=== PATIENT | female | born 1995 | race Caucasian/White ===

== ENCOUNTER → 2018-04-24 14:35 | Outpatient (CLI) | payer OTHER, SELFPAY ==
[2018-04-30 12:06] LABS: HPV Reflexed? NOT INDICATED
--- OUTSIDE RECORDS SUMMARY | 2018-06-10 11:51 | XMS RPT_ITS ---
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 of containers..01 ThinPrep Vial TYPE CODE TESTS RESULT OUT OF RANGE REFERENCE UNITS LAB L7400.0800 . Normal DIAGN Comment Result Comment: NEGATIVE FOR INTRAEPITHELIAL LESION AND MALIGNANCY. THIS SPECIMEN WAS RESCREENED PART OF OUR HEEL BUILDER MACHINE PROGRAM. LAB L7400.0900 . Normal ADEQ Comment Result Comment: Satisfactory for evaluation. Endocervical and/or squamous metaplastic cells (endocervical component) are present. LAB L7400.1400 . Normal PERFORM Comment Result Comment: Ela Sy, [place] LAB L7400.1500 . Normal QC Comment REV Result Comment: Angie Davidson, [place] (ASCP) LAB L7400.2575 . Normal TEST METHOD Comment Result Comment: This liquid based ThinPrep(R) pap test was screened with the use of an image guided system. LAB L7400.2600 . Normal . COMM LAB L7400.2700 . Normal PAPSMR Comment Result Comment: The Pap smear is a screening test designed to aid in the detection of premalignant and malignant conditions of the uterine cervix. It is not a diagnostic procedure and should not be used as the sole means of detecting cervical cancer. Both false-positive and false-negative reports do occur. LAB L7400.2800 . Normal HPV RFLX Comment Result Comment: The HPV DNA reflex criteria were not met with this specimen result therefore, no HPV testing was performed. Performed at: - [facility] [id number] [employer]: Kamini Coffman MD, Phone: [phone] Performed By: #### L7400.0350 #### [facility] (refer to report for specific site) refer to report for address and phone number ALLERGIES ALLERGIES DATE TYPE / CODE NAME / CODE REACTION SEVERITY SOURCE 11/21/2015 Drug No Known Unknown [facility] Allergy/4160 Allergies/F00 [facility] 13280(SNOMED [id number](RXNOR Repository CT) M) ENCOUNTERS ENCOUNTERS ADMIT/DISCHARGE ACCOUNT ADMITTING ENCOUNTER LOCATION SOURCE NUMBER CLASS 04/24/2018 [id number] Ambulatory Jennifer Jennifer 6 [facility] ing:WOBLAB Repository 07/29/2017 [id number] Ambulatory [place] 5 [facility] ing:MASS Repository PAYERS PAYERS ENCOUNTER GUARANTOR PAYER SUBSCRIBER SOURCE 04/24/2018 RUPERTO KRAUSE Primary Insurance:[facility] RAHUL Roe [place] [id number] [facility] ATANASOVDOB: [facility] [id number]: Repository [id number]: [phone] [phone] () Date:[id number], [place] [address]VP: CHECK WEBSITE 04/24/2018 Secondary NOT GIVENUNK [place] Insurance:SELF PAY [facility] Number: Effective Repository Date:2018-04-24 07/29/2017 RUPERTO KRAUSE Primary NOT GIVENUNK [place] [id number] Insurance:SELF PAY [place], [place] Number: Effective Repository [id number]: [phone]) Date:2017-07-17 [phone] ()
== END ==
PROVIDERS: Family Provider Family Medicine; PCP Family Medicine; Visit Provider Obstetrics & Gynecology
DX: Z12.4 Encounter for screening for malignant neoplasm of cervix (principal)
CPT/HCPCS: 88175; G0145

== ENCOUNTER → 2018-11-17 11:01 | Outpatient (CLI) | payer OTHER, SELFPAY ==
--- NOTE | 2018-11-17 11:03 | CT_ITS ---
STUDY: CT ABDOMEN AND PELVIS WITHOUT CONTRAST REASON FOR EXAM: Female, 23 years old. Pyelonephritis. Kidney stones. Recurrent UTIs. RADIATION DOSAGE (If Supplied By Facility): CTDIvol = ( 6.99 ) mGy, DLP = ( 349.33 ) mGycm TECHNIQUE: Transaxial images were obtained from the dome of the diaphragm to the symphysis pubis without oral contrast, and without intravenous contrast. Sagittal and coronal images were reconstructed. Individualized dose optimization techniques were used for this CT. COMPARISON: Comparison is made with prior study dated December 07, 2016. FINDINGS: The visualized lung bases are unremarkable. The visualized portions of the heart are within normal limits. Normal liver. Normal gallbladder and extrahepatic biliary system. Normal spleen. Normal pancreas. Normal bilateral adrenal glands. Normal right kidney. Punctate calculus seen in the lower pole calyx of the left kidney. Normal visualized stomach. Normal small intestine. Normal colon. The appendix is visualized and appears normal. Normal abdominal aorta. Normal inferior vena cava. Normal retroperitoneum. Normal urinary bladder. Normal abdominal wall. Normal osseous structures. CT/Abdomen/Pelvis without Cont IMPRESSION: Punctate calcification in the lower pole calyx of the left kidney. Electronically Signed: Alden García, at 12:59 EDT , Service support ,
--- NOTE | 2018-11-17 11:17 | RAD_ITS ---
CLINICAL HISTORY: Female, 23 years old. History of pyelonephritis. PROCEDURE: Retrograde cystogram. FLUOROSCOPY TIME (if supplied): (0:17) minutes/seconds 200 mL of contrast installed into the bladder in a retrograde fashion through the indwelling Peña catheter. The radiologist installed the contrast into the bladder. TECHNIQUE: (All elements of maximal sterile barrier technique followed, including US elements as applicable) Imaging was obtained during the filling neck and of the bladder. The urinary bladder is unremarkable. There is no evidence of vesicoureteral reflux. RAD/Voiding Urethrocystography IMPRESSION: Unremarkable examination. Electronically Signed: Alden García, at 12:50 EDT , Service support ,
--- NOTE | 2018-11-17 12:29 | NURSING ---
18 estonian mehta catheter inserted for cystogram with out complication at 1105, removed after testing, pt tolerated mehta insertion and removal with out discomfort
== END ==
PROVIDERS: Family Provider Family Medicine; PCP Family Medicine; Referring Provider Urology; Visit Provider Urology
DX: N20.0 Calculus of kidney (principal); N10 Acute pyelonephritis
CPT/HCPCS: 51600; 74176; 74455; Q9965

== ENCOUNTER → 2018-11-28 08:18 | Outpatient (CLI) | payer OTHER, SELFPAY ==
[2018-11-28 08:08] VITALS: BMI 22.1
--- NOTE | 2018-11-28 08:20 | RAD_ITS ---
STUDY: X-RAY - LEFT KNEE REASON FOR EXAM: Bilateral knee pain, no specific injury. TECHNIQUE: 4 view(s) of the knee. COMPARISON: None. FINDINGS: Normal visualized distal femur. Normal visualized proximal tibia and fibula. Normal proximal tibiofibular articulation. Normal medial femorotibial compartment. Normal lateral femorotibial compartment. Normal patellofemoral articulation. The soft tissue structures are unremarkable. RAD/Knee 4 or More Views IMPRESSION: Normal x-ray examination of the left knee. Electronically Signed: Wesley Ltuz MD at 11:38 EDT Tel , Service support ,
--- NOTE | 2018-11-28 08:20 | RAD_ITS ---
STUDY: X-RAY - RIGHT KNEE REASON FOR EXAM: Bilateral knee pain, no specific injury. TECHNIQUE: 4 view(s) of the knee. COMPARISON: None. FINDINGS: Normal visualized distal femur. Normal visualized proximal tibia and fibula. Normal proximal tibiofibular articulation. Normal medial femorotibial compartment. Normal lateral femorotibial compartment. Normal patellofemoral articulation. The soft tissue structures are unremarkable. RAD/Knee 4 or More Views IMPRESSION: Normal x-ray examination of the right knee. Electronically Signed: Wesley Lutz MD at 11:37 EDT Tel , Service support ,
== END ==
PROVIDERS: Family Provider Family Medicine; PCP Family Medicine; Referring Provider Orthopaedic Surgery; Visit Provider Orthopaedic Surgery
DX: M25.561 Pain in right knee (principal); M25.562 Pain in left knee
CPT/HCPCS: 73564

== ENCOUNTER → 2018-12-02 08:03 | Outpatient (CLI) | payer OTHER, SELFPAY ==
[2018-11-28 08:08] VITALS: BMI 22.1
--- NOTE | 2018-12-02 08:04 | MRI_ITS ---
STUDY: MRI LEFT KNEE WITH AND WITHOUT CONTRAST REASON FOR EXAM: Knee pain for 4 years, question bone mass. TECHNIQUE: Standardized fat and water weighted pulse sequences were obtained in all 3 orthogonal planes before and after intravenous administration of 12 mL of Dotarem. COMPARISON: Radiographs 11/28/2018. FINDINGS: There is minimal intrasubstance myxoid degeneration of the posterior horn of the medial meniscus without discrete medial meniscal tear. Normal hyaline cartilage of the medial femorotibial compartment. Normal medial femoral condyle and tibial plateau. Normal medial collateral ligamentous complex (MCL). Normal distal semimembranosus, gracilis and semitendinosus tendons. Normal lateral meniscus. Normal hyaline cartilage of the lateral femorotibial compartment. Normal lateral femoral condyle and tibial plateau. Normal proximal tibiofibular articulation. Normal lateral collateral (fibular) ligament. Normal popliteus tendon. Normal biceps femoris tendon. There is mild interstitial edema in the anterior cruciate ligament (T2 sagittal image 13; T2 coronal images 14, 15). Normal posterior cruciate ligament (PCL). Normal congruent patellofemoral articulation. Normal hyaline cartilage of the patellofemoral compartment. Normal medial and lateral patellar retinaculum. Normal quadriceps tendon. Normal patellar tendon. Normal Hoffa's fat pad. There is no joint effusion. There is a very small popliteal cyst (T2 sagittal images 7-9). There is mild cortical thickening of the posterior aspect of the distal femur at the origin of the medial gastrocnemius (proton density sagittal images 13-15) with very mild cystic change (T2 axial image 7), a sequelae of avulsive cortical irregularity. There is no abnormal contrast enhancement. MRI/Lower Ext Joint Only W/WO Cont IMPRESSION: Mild cortical thickening with very mild cystic change at the posterior aspect of distal femur at the origin of the medial gastrocnemius, a sequelae of avulsive cortical irregularity (cortical desmoid). Mild interstitial edema in the anterior cruciate ligament, possibly representing a low-grade sprain. Very small popliteal cyst. Electronically Signed: Wesley Lutz MD at 10:00 EDT Tel , Service support ,
== END ==
PROVIDERS: Family Provider Family Medicine; PCP Family Medicine; Referring Provider Orthopaedic Surgery; Visit Provider Orthopaedic Surgery
DX: M89.8X9 Other specified disorders of bone, unspecified site (principal)
CPT/HCPCS: 73723; A9575

== ENCOUNTER → 2019-04-28 14:11 | Outpatient (CLI) | payer OTHER, SELFPAY ==
[2019-04-27 16:13] VITALS: BMI 22.1
[2019-04-28 19:57] LABS: Chlamydia Trachomatis by PCR Negative (Negative); Neisserai gonorrhoeae by PCR Negative (Negative)
[2019-04-28 19:58] LABS: Probe Check PASS; Sample Adequacy Control PASS; Specimen Processing Control PASS
== END ==
PROVIDERS: Visit Provider Obstetrics & Gynecology
DX: Z11.3 Encounter for screening for infections with a predominantly sexual mode of transmission (principal)
CPT/HCPCS: 87491; 87591

== ENCOUNTER → 2019-05-01 17:04 | Outpatient (CLI) | payer OTHER, SELFPAY ==
[2019-05-01 16:01] VITALS: BMI 25.4
[2019-05-01 18:12] LABS: T4 Free Direct 0.92 ng/dL (0.76-1.46); Thyroid Stim Hormone (TSH) 1.92 uIU/mL (0.358-3.74)
[2019-05-07 16:00] LABS: 17-Hydroxyprogesterone 20 ng/dL (.)
[2019-05-09 16:07] LABS: DHEA Sulfate 368.6 ug/dL (110.0-431.7); Testosterone, Free 0.47 ng/dL (0.10-0.85); Testosterone, Total 47 ng/dL (8-48)
[2019-05-11 12:10] LABS: Androstenedione 131 ng/dL (41-262)
== END ==
PROVIDERS: Family Provider Family Medicine; PCP Family Medicine; Referring Provider Internal Medicine Endocrinology, Diabetes & Metabolism; Visit Provider Internal Medicine Endocrinology, Diabetes & Metabolism
DX: E27.8 Other specified disorders of adrenal gland (principal); E25.9 Adrenogenital disorder, unspecified
CPT/HCPCS: 36415; 82157; 82627; 83498; 84402; 84403; 84439; 84443; 82626

== ENCOUNTER 2020-12-31 14:22 | Emergency (ER) | payer OTHER, SELFPAY ==
[2020-12-31 14:23] VITALS: BP 137/99; PULSE 62; RESP 16; TEMP 36.3; O2SAT 97; BMI 24.9
--- NOTE | 2020-12-31 15:54 | CT_ITS ---
STUDY: CT ABDOMEN AND PELVIS WITHOUT CONTRAST REASON FOR EXAM: Female, 25 years old. Kidney stone evaluation left flank pain RADIATION DOSAGE (If Supplied By Facility): CTDIvol = ( 6.46 ) mGy, DLP = ( 322.76 ) mGycm TECHNIQUE: Transaxial images were obtained from the dome of the diaphragm to the symphysis pubis without oral contrast, and without intravenous contrast. Sagittal and coronal images were reconstructed. Individualized dose optimization techniques were used for this CT. COMPARISON: 17 November 2018 FINDINGS: The visualized lung bases are unremarkable. The visualized portions of the heart are within normal limits. Normal liver. Normal gallbladder and extrahepatic biliary system. Normal spleen. Normal pancreas. Normal bilateral adrenal glands. There is a 3 mm stone at the left ureterovesical junction with mild hydroureteronephrosis. Right collecting system is clear. Normal visualized stomach. Normal small intestine. Normal colon. The appendix is visualized and appears normal. Normal abdominal aorta. Normal inferior vena cava. Normal retroperitoneum. Normal urinary bladder. Normal abdominal wall. Normal osseous structures. CT/Abdomen/Pelvis without Cont IMPRESSION: 1. 3 mm left UVJ stone with mild hydronephrosis. Electronically Signed: Sonido Lawrence MD at 17:08 EDT Tel , Service support ,
--- NOTE | 2020-12-31 15:59 | EX.ED.DYSGE1 ---
HPI History of Present Illness Chief Complaint: Flank Pain Informant: patient Onset/Context/Timing Onset: Today Context: Gradual Onset Timing: Continuous Quality: Stabbing Location: Left flank Worsened by: Nothing Relieved by: Nothing Narrative Narrative: Patient presents with left flank pain that began today. Patient states she has been having some dysuria and frequency over the last couple days. Patient states her pain is over her left flank. Patient describes a stabbing. Patient states she has a history of kidney stones and states this feels similar to prior kidney stones. Patient admits to nausea but denies any vomiting. Patient denies any fevers or chills. Patient denies any diarrhea, melena, or hematochezia. Patient states nothing makes her pain worse and nothing makes it better. [facility] Medical History (Updated 12/31/20 @ 17:[address] Jas Monte DO) Adrenal hyperplasia Anxiety Depression Kidney stones Home Medications drospirenone 3 mg-ethinyl estradiol 0.03 mg tablet 1 tab PO DAILY 11/28/18 [History Last Taken Unknown] bupropion HCl 150 mg 24 hr tablet, extended release See Rx Instructions .ROUTE .COMPLEX 04/28/19 [History Last Taken Unknown] ciprofloxacin HCl [Cipro] 250 mg PO BID 12/31/20 [History Last Taken Unknown] hydrocodone-acetaminophen 1 tab PO Q6H PRN PRN 1 Days #3 tablet 12/31/20 [Rx Last Taken Unknown] hydrocodone-acetaminophen 1 tab PO Q6H PRN PRN 3 Days #10 tablet 12/31/20 [Rx Last Taken Unknown] Allergy/AdvReac Type Severity Reaction Status Date / Time No Known Allergies Allergy Verified 05/01/19 15:59 Family History Other Anxiety CVA (cerebral vascular accident) Colon cancer Heart disease Kidney disease Myocardial infarction Osteoporosis Thyroid disorder Social History Smoking Status: Never smoker alcohol intake: current alcohol intake frequency: a few times a week Alcohol type: beer details: 1-2 substance use type: does not use what type of physical activity do you participate in: none ROS ROS ED Constitutional Constitutional ED: Denies chills or fever(s) Eyes Eyes: Denies blurry vision or change in vision ENT ENT ED: Denies rhinorrhea or sore throat Cardiovascular Cardiovascular: Denies chest pain or palpitations Respiratory/Chest Respiratory/Chest: Denies cough or dyspnea Gastrointestinal Gastrointestinal: Reports nausea; Denies vomiting Genitourinary Genitourinary ED: Reports dysuria and urinary frequency; Denies hematuria Musculoskeletal Musculoskeletal: Denies back pain or neck pain Integumentary Denies abscess or rash Neurologic Neurologic: Denies headache(s) or weakness Allergic/Immunologic Allergic/Immunologic ED: Denies mouth swelling or urticaria EXAM Physical Exam Const Vital Signs: 12/31/20 14:23 12/31/20 17:56 Temperature 97.3 F L Temperature Source Temporal Pulse Rate 62 67 Respiratory Rate 16 16 Blood Pressure 137/99 H 118/81 H Blood Pressure Mean 111 Pulse Ox 97 Oxygen Delivery Method Room Air Positive well nourished and well developed General Appearance ED: well developed HEENT Reports moist mucous membranes Neck supple and no JVD Resp normal respiratory effort and clear to auscultation bilaterally Cardio regular rate, regular rhythm and no murmurs GI normal to inspection, nondistended, normoactive bowel sounds Palpation: soft and tender suprapubic (Mild); Negative for guarding or rebound tenderness present Back/Spine General Back: CVA tenderness left Extremity normal to inspection General Extremety ED: Negative for edema or tenderness General Extremity: Negative for edema Neuro oriented x3, CN's II-XII intact bilaterally and no sensory deficits noted Sensorium / Orientation: alert Motor Exam: strength 5/5 throughout Psych mental status grossly normal Skin no rashes or lesions noted MDM MDM MDM Narrative Medical decision making narrative: Patient was given IV fluids, Toradol, and Zofran. CBC and basic metabolic profile were within normal limits. Urinalysis does not show any evidence of urinary tract infection. Serum hCG was negative. CT scan of the abdomen and pelvis was obtained. There is a 3 mm calculus of the left distal ureter at the UVJ. There is hydronephrosis and hydroureter noted. There is no other acute abnormality noted. This was interpreted by the radiologist and reviewed by myself. Patient is feeling better on reevaluation. Patient was given a prescription for [place]. Patient was instructed to drink plenty of fluids. Patient was instructed to follow-up with her primary care physician in 5 to 7 days. Patient understood and was agreeable with the plan. All questions were answered. Lab Data Attestation: I reviewed the patient's lab results. Labs: Laboratory Results - last 24 hr 12/31/20 12/31/20 12/31/20 15:25 15:30 15:30 WBC 8.1 RBC 4.49 Hgb 14.6 Hct 40.9 MCV 91.1 MCH 32.5 H MCHC 35.7 RDW Std Deviation 36.6 RDW Coeff of Marium 11.0 L Plt Count 237 MPV 10.9 Immature Gran % (Auto) 0.200 Neut % (Auto) 68.4 Lymph % (Auto) 20.2 Rice % (Auto) 10.1 H Eos % (Auto) 0.7 Baso % (Auto) 0.4 Absolute Neuts (auto) 5.5 Absolute Lymphs (auto) 1.64 Nucleated RBC % 0 Sodium 141 Potassium 3.5 Chloride 106 Carbon Dioxide 26.0 Anion Gap 9 BUN 11 Creatinine 0.86 Estim Creat Clear Calc 87.10 Est GFR (MDRD) Af Amer 104 Est GFR (MDRD) Non-Af 86 BUN/Creatinine Ratio 12.8 Glucose 93 Calcium 9.2 Serum , Qual Urine Color Yellow Urine Clarity Clear Urine pH 5.0 Ur Specific [place] 1.025 Urine Protein 15 H Urine Glucose (UA) Normal Urine Ketones Negative Urine Occult Blood 25 H Urine Nitrite Negative Urine Bilirubin Negative Urine Urobilinogen Normal Ur Leukocyte Esterase Negative Urine RBC 0-5 SEEN Urine WBC 0 SEEN Ur Squamous Epith Cells 0-5 SEEN Urine Bacteria 0 SEEN Urine Mucus 0 SEEN 12/31/20 15:30 WBC RBC Hgb Hct MCV MCH MCHC RDW Std Deviation RDW Coeff of Marium Plt Count MPV Immature Gran % (Auto) Neut % (Auto) Lymph % (Auto) Rice % (Auto) Eos % (Auto) Baso % (Auto) Absolute Neuts (auto) Absolute Lymphs (auto) Nucleated RBC % Sodium Potassium Chloride Carbon Dioxide Anion Gap BUN Creatinine Estim Creat Clear Calc Est GFR (MDRD) Af Amer Est GFR (MDRD) Non-Af BUN/Creatinine Ratio Glucose Calcium Serum , Qual NEGATIVE Urine Color Urine Clarity Urine pH Ur Specific [place] Urine Protein Urine Glucose (UA) Urine Ketones Urine Occult Blood Urine Nitrite Urine Bilirubin Urine Urobilinogen Ur Leukocyte Esterase Urine RBC Urine WBC Ur Squamous Epith Cells Urine Bacteria Urine Mucus Radiography Diagnostic Testing: Radiology Impression Abdomen/Pelvis CT 12/31/20 15:54 IMPRESSION: 1. 3 mm left UVJ stone with mild hydronephrosis. Electronically Signed: Sonido Lawrence MD at 17:08 EDT Tel , Service support , Discharge Plan Triage Chief Complaint: Flank Pain Other Complaint: Complaint ED Provider: Jas Monte Dx/Rx/DC Orders Clinical Impression: Calculus of distal left ureter Instructions: ED Kidney Stone w/ Colic Prescriptions: New hydrocodone-acetaminophen [hydrocodone-acetaminophen] 1 TABLET tablet 1 tab PO Q6H PRN PRN (Reason: Pain) 3 Days Qty: 10 RF: 0 hydrocodone-acetaminophen [hydrocodone-acetaminophen] 1 TABLET tablet 1 tab PO Q6H PRN PRN (Reason: Pain) 1 Days Qty: 3 RF: 0 No Action drospirenone-ethinyl estradiol [Kaylene] 3-0.03 mg tablet 1 tab PO DAILY RF: 0 bupropion HCl [Wellbutrin XL] 150 mg tablet extended release 24 hr See Rx Instructions .ROUTE .COMPLEX RF: 0 ciprofloxacin HCl [Cipro] 250 mg Tablet 250 mg PO BID RF: 0 Primary Care Provider: Dee Pena Referrals: Crys Zabala MD [STAFF PHYSICIAN] - 3-5 Days if not improving Dee Pena DO [Primary Care Provider] - 3-5 Days Disposition Disposition: Home, Self Care Discharge Date/Time: 12/31/20 18:24
[2020-12-31 16:06] LABS: Bacteria 0 SEEN /hpf (None Seen); Mucous, Urine 0 SEEN /hpf (<or=2+); White Blood Cells 0 SEEN /hpf (0-5)
[2020-12-31 16:07] LABS: Absolute Lymphocyte Count 1.64 X10^3/uL (0.83-4.51); Absolute Neutrophil Count 5.5 X10^3/uL (2.0-7.7); Basophil# 0.03 X10^3/uL; Basophil% 0.4 % (0-1); Eosinophil# 0.06 X10^3/uL; Eosinophils% 0.7 % (0-5); Hematocrit 40.9 % (37-47); Hemoglobin 14.6 g/dL (12.0-15.0); Lymphocyte # 1.64 X10^3/ul (0.83-4.51); Lymphocyte % 20.2 % (19-41); Mean Corp Hgb Conc 35.7 g/dL (32-36); Mean Corpuscular Hgb 32.5 pg (27.0-32.0); Mean Corpuscular Volume 91.1 fL (81-99); Mean Platelet Vol. 10.9 fl (6.2-12.0); Monocyte# 0.82 X10^3/uL; Monocyte% 10.1 % (0-10); NRBC Flagged by Analyzer 0 % (0-5); Neutrophil # 5.54 X10^3/uL (2.7-7.7); Neutrophil % 68.4 % (47-70); Platelet Count 237 K/mm3 (150-450); RBC Distribution Width SD 36.6 fl (35.1-43.9); Red Blood Count 4.49 M/mm3 (4.2-5.4); White Blood Count 8.1 K/mm3 (4.4-11.0)
[2020-12-31] MEDS: Ondansetron 4 MG/2 ML Vial IV (16:07)
[2020-12-31] MEDS: 0.9% Normal Saline 1,000 ML 250 ML IV (16:07)
[2020-12-31] MEDS: Ketorolac 30 MG/ML Syringe IV (16:07)
[2020-12-31 16:12] LABS: Internal QC Validated? YES +Cl - CLEAR BKGD; Pregnancy, Serum, hCG Quali. NEGATIVE Negative
[2020-12-31 16:13] LABS: Color, Urine Yellow (Yellow); Glucose, Dipstick Normal (Normal); Ketone-Dipstick Negative (Negative); Leukocyte Esterase-Dipstick Negative /ul (Negative); Nitrite-Dipstick Negative (Negative); Occult Blood-Urine 25 /ul (Negative); Protein-Dipstick 15 mg/dl (Negative); Specific Gravity, Urine 1.025 (1.002-1.030); Urine Bilirubin Dipstick Negative (Negative); Urine Clarity Clear (Clear); Urine Urobilinogen Normal (Normal)
[2020-12-31 16:17] LABS: Anion Gap 9 (5-15); BUN 11 mg/dL (7-18); BUN/Creat Ratio 12.8 RATIO (10-20); Calcium,Total 9.2 mg/dL (8.5-10.1); Chloride 106 mmol/L (98-107); Creatinine, Serum 0.86 mg/dL (0.55-1.02); EST Glomerular Filtration Rate 86 mL/min (>60); Est Glom Filt Rate - Afr Amer 104 mL/min (>60); Glucose 93 mg/dL (74-106); Potassium 3.5 mmol/L (3.5-5.1); Sodium Level 141 mmol/L (136-145)
[2020-12-31 16:20] LABS: Red Blood Cells-Urine 0-5 SEEN /hpf (0-5); Squamous Epithelial Cells - UA 0-5 SEEN /hpf (5-10)
[2020-12-31 17:56] VITALS: BP 118/81; PULSE 67; RESP 16
--- NOTE | 2020-12-31 18:54 | ED.RN ---
Mom called in. They went to get rx and [facility]. dr rodriguez [facility] night
== END 2020-12-31 18:24 | disposition home or self-care (01) ==
PROVIDERS: Emergency Provider Emergency Medicine; PCP Family Medicine
DX: N13.2 Hydronephrosis with renal and ureteral calculous obstruction (principal); F32.9 Major depressive disorder, single episode, unspecified; F41.9 Anxiety disorder, unspecified; Z87.442 Personal history of urinary calculi
CPT/HCPCS: 74176; 80048; 81001; 84703; 85025; 96361; 96374; 96375; 99283; J7030; A4216; J2405

== ENCOUNTER 2021-02-24 08:30 | Outpatient (RCR) | payer OTHER, SELFPAY ==
--- NOTE | 2021-02-24 09:05 | BH.SGPN.GN ---
Behaviors/Verbalizations/Mental Status: Eye contact is good. Motor activity is appropriate. Appearance is casual. Speech is appropriate. Mood is anxious. Affect is congruent. Thoughts are linear and logical. No evidence of psychosis. Reviewed daily symptom tracker sheet with no reports of suicidal ideations, plan, or intent. Client Response/Progress/Benefit: Client was engaged throughout group session. Client appeared anxious, as it was her first day of IOP. Client discussed a stressor of being back in [place] after having lived in [place] for a few years. Client reports attending IOP treatment to gain healthy coping skills and learn to manage her anger. Discussed using unhealthy coping skills and experiencing anger and frustration due to abstaining from using marijuana. Appeared to benefit from group discussion of skills to cope with anger such as knowing when to leave a situation. 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 Will continue IOP treatment to increase mood stability, and replace use of marijuana with healthier coping skills. Narrative Note: []
--- NOTE | 2021-02-24 10:10 | BH.SGPN.GN ---
Behaviors/Verbalizations/Mental Status: []Client alert and oriented, casually dressed and groomed. Eye contact fair. Motor activity appropriate. Speech within normal limits. Affect constricted, mood depressed. Thoughts linear, logical, no signs of hallucinations or delusions. Client Response/Progress/Benefit: []Pt was an engaged participant in group discussion AEB taking notes and providing input at times. Attentive during psychoeducation reviewing internal and external obstacles and provided examples throughout. Participated in the reflection activity in which clients candi pictures depicting their current and desired reality and shared with the group. Pt described her current reality as isolated, anxious, and feels unable to trust others. Pt described her desired reality as being around others, enjoying life and no longer believing everyone is unsafe. Pt identified barriers to getting to desired reality which included: anger, need for external validation, isolation, mistrust, and overthinking. Benefited from group by increasing awareness of current reality and strengths. Will continue IOP tx to prevent decompensation, reduce negative thinking, and improve overall functioning.
--- NOTE | 2021-02-24 11:15 | BH.SGPN.GN ---
Behaviors/Verbalizations/Mental Status: []Client alert and oriented, casually dressed and groomed. Eye contact fair to good. Motor activity appropriate. Speech within normal limits. Affect congruent, mood anxious, depressed. Thoughts linear, logical, no signs of hallucinations or delusions. Client Response/Progress/Benefit: []Client new to IOP tx, did well to remain engaged during activity and contributed as group brainstormed ideas on how to cope with internal barriers that keep clients stuck from moving towards goals. Able to identify barriers to desired reality. Identified barriers to current reality to include: negative self-talk, other?s expectations, anger, trust issues, and need for external validation. Client wants to work on overcoming the barrier of trust issues by more consistently using the affirmational statements to combat negative thoughts about the trustworthiness of others and try to remind herself of the positives people display. Shared that this will help her feel more supported, less angry, and begin to open up more to others. Benefited from group by identifying obstacles and solutions to desired reality. Client will continue IOP tx to improve insight into own mental health symptomology, increase use of healthy emotion regulation skills, as well as continue to improve overall functioning. Narrative Note: []
--- NOTE | 2021-02-27 09:03 | BH.SGPN.GN ---
Behaviors/Verbalizations/Mental Status: []Eye contact is good. Motor activity is appropriate. Appearance is casual. Speech is appropriate. Mood is apathetic. Affect is constricted. Thoughts are linear and logical. No evidence of psychosis. Reviewed daily symptom tracker sheet with report of 1/5 suicidal ideation and 0/5 for risk, denies plan or intent. Client Response/Progress/Benefit: []Client was engaged throughout group session. Client expressed her emotion of the day as ?angry?. Appeared to benefit from group discussion regarding coping with anger. Client discussed a stressor of the weather getting colder, as she has lived in [place] for the past few years. Client disqualified and minimized this, stating that others had ?more important? stressors. Group and clinician discussed the importance of not invalidating one?s stressors. 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 Client indicates per daily symptom tracker that her mood and ability to function have been generally better. Client will continue IOP treatment to increase anger management skills to increase client functioning. Narrative Note: []
--- NOTE | 2021-02-27 10:08 | BH.SGPN.GN ---
Behaviors/Verbalizations/Mental Status: []Eye contact is fair to good. Motor activity is appropriate. Appearance is casual. Speech is Appropriate. Mood is anxious and depressed. Affect is constricted. Thoughts are linear and logical. No evidence of psychosis. Client Response/Progress/Benefit: []Pt was a semi-active participant in group discussion and activity, providing input when prompted and working with peers to complete challenge activity. Attentive during psychoeducation on coping skills. Sharing that sometimes we turn to unhealthy skills because they are easier and work more in the immediate. Pt along with peers worked together to identify unhealthy coping skills such as; avoidance, lashing out on others, substances, isolation, distracting with other activities. Group was able to identify why people use unhealthy coping skills such as; easy, comfortable, work in the short-term, habit, or it?s what they were taught/learned from others. Pt noted connecting with numbing herself with substances such as smoking to avoid as a form of unhealthy coping. Pt was able to make connection between the activity (tower building) and the importance of having a strong base/foundation of both internal and external coping skills. Benefited from increased understanding of unhealthy coping skills and the need for developing healthy internal and external coping skills to manage mental health sx. Pt will continue in IOP to prevent decompensation, improve mental health insight, increase healthy coping skills, as well as continue to promote healthy change behaviors. Narrative Note: []
--- NOTE | 2021-02-27 11:11 | BH.SGPN.GN ---
Behaviors/Verbalizations/Mental Status: []Client alert and oriented, casually dressed and groomed. Eye contact fair to good. Motor activity appropriate. Speech within normal limits. Affect congruent, mood depressed. Thoughts linear, logical, no signs of hallucinations or delusions. Client Response/Progress/Benefit: []Client responded well to session, taking notes and contributing at various points throughout. Group discussed the different categories of coping skills which included distraction, emotional release, grounding, self-love, and thought challenging. Client participated in creating a coping skills ?menu? from the five categories of coping skills. Client's coping skill menu included: tv for healthy distraction, cooking for grounding, writing for emotional release, and yoga for self-love. Appeared to benefit from increasing repertoire of healthy coping skills. Will continue tx to improve decision making and emotion release skills, challenge negative thoughts and prevent decompensation. Narrative Note: []
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
--- NOTE | 2021-03-01 11:10 | BH.SGPN.GN ---
Behaviors/Verbalizations/Mental Status: []Client alert and oriented, casually dressed and groomed. Eye contact fair. Motor activity appropriate. Speech within normal limits. Affect constricted. Mood dysthymic. Thoughts linear, logical, no signs of hallucinations or delusions. Client Response/Progress/Benefit: []Client responded well to session as evidenced by client listening attentively to others and providing strategies during discussion. Client identified her warning signs for crisis and gained further awareness of earliest warning signs. Client created a crisis action plan to help client better manage warning signs for crisis. Client?s action plan for increased impulsivity included: setting limits for self, asking a support prior to acting on thought and ask self prior to acting upon thought if her action will be helpful. Client appeared to benefit from creating a crisis action plan and increasing self-awareness. Client to continue IOP tx to increase healthy coping, improve daily functioning and prevent decompensation.
[2021-03-01 11:34] VITALS: BP 124/88; PULSE 85
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
--- NOTE | 2021-03-01 13:29 | BH.DR.ITP ---
Initial Treatment Plan Patient Information Visit Information: ADMISSION DATE: EXPECTED LOS: 4-6 weeks Problems/Symptoms Problem #1:: Mood instability Symptom:: Sadness, anger outbursts, hopelessness, worthlessness, anhedonia, low energy, guilt, fleeting, passive suicidal ideation Problem #2:: Anxiety Symptom:: Worry, rumination
--- NOTE | 2021-03-01 13:39 | BH.PSA ---
Development & Family of Origin - Family History Family History: Family History (Last Reviewed 05/03/19 @ 19:[address] Efrain Jimenez MD) Other Anxiety CVA (cerebral vascular accident) Colon cancer Heart disease Kidney disease Myocardial infarction Osteoporosis Thyroid disorder Suicide Assessment Treatment Plan Recommendations
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
--- NOTE | 2021-03-02 21:15 | BH.MTP_ITS ---
Master Treatment Plan - Patient Information Program Physician:: Dr. Servin Primary Therapist:: Zahida Arellano, [facility] - Psychiatric Diagnoses Psychiatric Diagnoses:: 1. Bipolar, NOS (F 31.9). 2. Generalized anxiety disorder. 3. Strong cluster B traits. 4. History of marijuana use disorder Diagnosis Code(s):: F31.9 - Estimated LOS Estimated LOS (in weeks):: 6 Problem/Goal #1 - Problem/Goal #1 Stated Goal:: Client will increase mood stability, decrease depressive symptoms, and decrease passive thoughts of through Intensive Outpatient Program. Description of Barriers: Potential barriers to treatment progress include: marijuana use, alcohol use, distorted thought patterns, impulsiveness, negative thought patterns, passive thoughts of , and anxiety. Functional Impact: The patient with history of depression anxiety since high school who was referred to the [facility] behavioral health IOP program by family members due to worsening symptoms of depression and increasing inability to function. This has been going on for the past several months. She moved back to [place] from [place] around January 04, 2021 due to worsening mental health issues. 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 She has not applied for jobs yet and wanted to get her mental health improved before doing so. The patient states that her biggest stressor currently is relationship issues. She states that she has never had a friend longer than 2 years and romantic partners have been 6 to 8 months at the longest. She also has low self-esteem and says I have no identity. She has limited primary support and describes that she only has 1 friend left and her mother to talk to. She endorses feeling empty, sad and down. She has crying episodes and feels hopeless and worthless. She is a worrier by nature. - Objectives Objective #1 Stated Objective: Client will identify and replace 2-3 negative thinking patterns that reinforce depressive symptoms, self-hate, and negative self-talk. Interventions: Therapist will help client identify distorted, negative beliefs about self and replace with more realistic, affirmative messages. Therapist will use CBT to help client increase insight to the connection between thoughts, emotions, and behaviors. Therapist will encourage client to practice thought challenging. Discharge Criteria: Client will have achieved this goal when can identify at least 3 negative self-talk messages and replace those messages with positive, affirmative messages. Target Date: 04/13/21 Review Date: 03/30/21 Objective #2 Stated Objective: Client will learn and utilize 2-3 healthy coping strategies to manage depressive symptoms as shown by reduced DSM-5 cross-cutting symptom measure score. Interventions: Therapist will help client identify triggers and warning signs of depression and will teach client various coping skills to manage client?s symptoms and give client tangible resources to use to regulate emotions. Discharge Criteria: Client will have achieved this goal when can verbalize and practiced at least 2 healthy coping strategies that successfully manage depressive symptoms. Pt will have met this goal when pt?s score on the DSM 5 cross cutting measure for depression has been decreased and per pt?s report daily functioning has improved. Target Date: 04/13/21 Review Date: 03/30/21 Problem/Goal #2 - Problem/Goal #2 Stated Goal:: Client will reduce overall frequency, intensity, and duration of anxiety to improve functioning. Description of Barriers: Potential barriers to treatment progress include: marijuana use, alcohol use, distorted thought patterns, impulsiveness, negative thought patterns, passive thoughts of , and anxiety. Functional Impact: The patient with history of depression anxiety since high school who was referred to the [facility] behavioral health IOP program by family members due to worsening symptoms of depression and increasing inability to function. This has been going on for the past several months. She moved back to [place] from [place] around January 04, 2021 due to worsening mental health issues. 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 She has not applied for jobs yet and wanted to get her mental health improved before doing so. The patient states that her biggest stressor currently is relationship issues. She states that she has never had a friend longer than 2 years and romantic partners have been 6 to 8 months at the longest. She also has low self-esteem and says I have no identity. She has limited primary support and describes that she only has 1 friend left and her mother to talk to. She endorses feeling empty, sad and down. She has crying episodes and feels hopeless and worthless. She is a worrier by nature. - Objectives Objective #1 Stated Objective: Client will learn and implement 2-3 calming skills to reduce overall anxiety and manage anxiety Interventions: Therapist will teach client calming/relaxation skills and assign client homework which practices relaxation skills daily. Discharge Criteria: Client will have achieved this goal when can verbalize at least 2 calming skills and implement those skills.? Target Date: 04/13/21 Review Date: 03/30/21 Objective #2 Stated Objective: Pt will decrease anxious symptoms AEB pt?s score on the DSM 5 cross-cutting measure improve pt?s daily functioning. Interventions: Through groups and individual therapy, pt will be provided education about anxiety?s impact on body and common physiological reaction to anxiety. Therapist will teach pt appropriate breathing techniques and build healthy coping skills to manage daily anxieties. Discharge Criteria: Pt will have met this goal when pt?s score on the DSM 5 cross cutting measure for anxiety has been decreased and per pt?s report daily functioning has improved. Target Date: 04/13/21 Review Date: 03/30/21
--- NOTE | 2021-03-03 09:05 | BH.SGPN.GN ---
Behaviors/Verbalizations/Mental Status: Eye contact is good. Motor activity is appropriate. Appearance is casual. Speech is appropriate. Mood is depressed. Affect is flat. Thoughts are linear and logical. No evidence of psychosis. Reviewed daily symptom tracker sheet with no reports of suicidal ideations, plan, or intent. Client Response/Progress/Benefit: Client was engaged throughout group session. Client reported her emotion of the day as ?empty,? discussing stressors of losing relationships. Client appeared to benefit from group discussion normalizing this feeling, and suggested strategies to help make relationships more healthy including communication. Client identified win of starting back up with her individual outpatient therapist as well as coming to IOP. Client stated that she has been back in therapy for one week, and is ready to make progress. Will continue IOP treatment to increase knowledge of healthy coping skills, improve functioning, and reduce self-sabotaging behaviors. Narrative Note: []
--- NOTE | 2021-03-03 10:10 | BH.SGPN.GN ---
Behaviors/Verbalizations/Mental Status: []Eye contact is good. Motor activity is slowed. Appearance is casual. Speech is Appropriate. Mood is dysthymic. Affect is flat. Thoughts are linear and logical. No evidence of psychosis Client Response/Progress/Benefit: []Pt was an active participant in group discussion. Attentive during psychoeducation on Conflict Styles ( Avoidant, Competing, Accommodating, and Collaborating). Participated in interactive group discussion on benefits of conflict.? Pt along with peers identified several reasons conflict is often avoided which included; not wanting to hurt others, high emotions, wanting short-term relief, and lack of awareness. Pt believes the conflict style she most often uses is avoiding, but it builds up and pt has ?a shark moment.? Pt reports this has led to burning bridges and ruining relationships. Benefited from increased awareness on conflict styles. Will continue in IOP to prevent decompensation, increase distress tolerance, and improve functioning. Narrative Note: []
--- NOTE | 2021-03-03 11:17 | BH.SGPN.GN ---
Behaviors/Verbalizations/Mental Status: []Client alert and oriented, casually dressed and groomed. Eye contact good. Motor activity appropriate. Speech within normal limits, quiet. Affect congruent, mood depressed. Thoughts linear, logical, no signs of hallucinations or delusions. Client Response/Progress/Benefit: []Client engaged in session AEB contributing to discussion and engaging in activity. Client did well to review conflict styles and the various impacts of each on mental health. Shared that ?Falling into accommodating all the time could lead to resentment later on?. Client participated in activity and was actively listening to peers? suggestions at times, as well as was willing to be assertive when the potential conflict was important to her. To better address conflict, client wants to work on ?remain calm? by trying not to overreact when faced with difficult situations. Shared this could help with improving her ability to make rational and thought-out choices when faced with conflict. Appeared to benefit from gaining strategies to help client better manage conflict. Will continue IOP tx to increase mood stability and reduce depressive sx, improve self-care and use of healthy coping skills when feeling dysregulated, and improve overall functioning. Narrative Note: []
--- NOTE | 2021-03-06 09:05 | BH.SGPN.GN ---
Behaviors/Verbalizations/Mental Status: Eye contact is good. Motor activity is appropriate. Appearance is casual. Speech is appropriate. Mood is euthymic. Affect is congruent. Thoughts are linear and logical. No evidence of psychosis. Reviewed daily symptom tracker sheet with no reports of suicidal ideations, plan, or intent. Client Response/Progress/Benefit: Client was engaged throughout group session. Client discussed relationships as a stressor, but that she is working on not pushing people away. Appeared to benefit from supportive group environment. Client stated that she is working on utilizing self care, and is planning on going to the gym today and did her nails yesterday. Progress noted AEB client reporting utilizing self-care more. Client indicated per daily symptom tracker that her mood and ability to function has been generally better. Will continue IOP treatment to increase interpersonal effectiveness skills to positively impact relationships and increase functioning. Narrative Note: []
--- NOTE | 2021-03-06 10:18 | BH.SGPN.GN ---
Behaviors/Verbalizations/Mental Status: []Client alert and oriented, casually dressed and groomed. Eye contact good. Motor activity appropriate. Speech within normal limits. Affect flat, mood dysthymic. Thoughts linear, logical, no signs of hallucinations or delusions. Client Response/Progress/Benefit: []Client was a passive participant AEB taking notes and listening to peers. Connected with group topic of perspective and the impacts of one?s perspective on mental health. Attentive as the group identified impact of a negative perspective which included: increased panic attacks, believing irrational thoughts, and worsening mental health symptoms. Client appeared to benefit from increasing understanding of mental health benefits of a positive perspective and potential consequences to progress when perspective is negative. Client continues to be mostly quiet during group sessions, but her attendance is consistent. Will continue IOP tx to prevent decompensation, gain healthy coping skills to manage mood symptoms, and increase self-awareness. Narrative Note: []
--- NOTE | 2021-03-06 11:19 | BH.SGPN.GN ---
Behaviors/Verbalizations/Mental Status: []Client alert and oriented, casually dressed and groomed. Eye contact good. Motor activity appropriate. Speech within normal limits, quiet. Affect constricted, mood anxious and depressed. Thoughts linear, logical, no signs of hallucinations or delusions. Client Response/Progress/Benefit: []Pt did well to remain attentive throughout session, AEB providing some feedback when prompted, taking notes, and completing worksheet provided. Engaged as group reviewed the importance of taking a strengths-based approach in order to foster a healthier perspective and better manage mental health symptoms. Completed strengths exploration worksheet and identified personal strengths to include: intelligence, ambition, discipline, curiosity, and spirituality. Pt shared that working to recognize these personal strengths would allow her to do more self-exploration to develop more confidence in her identity and reduce external validation seeking behaviors. Shared wanting to focus on fostering personal strengths of curiosity and discipline to explore different interests she may find enjoyable outside of academics. Benefited from identifying personal strengths and strategies for enhancing use of identified strengths. Pt to continue IOP tx to further improve self-care, reduce depression, improve internal coping skills, and continue to reduce external validation seeking. Narrative Note: []
--- NOTE | 2021-03-08 10:10 | BH.SGPN.GN ---
Behaviors/Verbalizations/Mental Status: [] Eye contact is good. Motor activity is appropriate. Appearance is casual. Speech is Appropriate. Mood is depressed. Affect is flat. Thoughts are linear and logical. No evidence of psychosis. Client Response/Progress/Benefit: [] Pt was an active participant in group discussion and activity. Attentive during psychoeducation. Pt participated in interactive group discussion in which group defined fixed mindset and provided insight on how a fixed mindset could impact mental health and result in; being closed to new possibilities, focusing only on how things are unfair, could lead to helplessness, could lead to feelings of not being in control, could cause one to feel like a failure, and could cause one to ignore any success. Interacted and worked well with peers in small group. Fixed mindset thoughts that were overheard during activity included; This won't work, this didn't work before, I don't think this matters, Its hard. I'm nervous, this sucks, this is impossible, I'm not good at this, we will fail. Benefited from increased awareness on the role of fixed mindset on mental health. Will continue in IOP to prevent decompensation, increase healthy coping, and improve functioning. Narrative Note: []
--- NOTE | 2021-03-08 11:10 | BH.SGPN.GN ---
Behaviors/Verbalizations/Mental Status: []Client alert and oriented, casually dressed and groomed. Eye contact good. Motor activity appropriate. Speech within normal limits. Affect constricted, mood calm. Thoughts linear, logical, no signs of hallucinations or delusions. Client Response/Progress/Benefit: []Client engaged during activity and discussion AEB remaining attentive, providing increased input, and taking notes throughout. Client worked in small group to apply skills learned to reframe own personal fixed thoughts. Appeared to benefit from suggestions provided by peers as client indicated struggling to reframe thoughts identified. Reframed personal fixed thought of ?I?ll never have a healthy relationship? with growth mindset thought of ?I can be struggling with relationships right now and still make progress?. Client also picked a strategy from the list of suggestions to develop a growth mindset. Benefitted from discussing benefits of growth mindset and brainstorming strategies for prompting growth-mindset. Progress noted in client?s consistent attendance and engagement. Will continue IOP tx prevent decompensation, gain insight to unhealthy coping skills, and learn healthy alternatives to manage symptoms. Narrative Note: []
--- NOTE | 2021-03-10 10:00 | BH.SGPN.GN ---
Behaviors/Verbalizations/Mental Status: []Client alert and oriented, casually dressed and groomed. Eye contact good. Motor activity appropriate. Speech within normal limits. Affect constricted, mood dysthymic. Thoughts linear, logical, no signs of hallucinations or delusions. Client Response/Progress/Benefit: []Pt participated in group discussion and activity. Attentive during psychoeducation on the stages of change. Pt participated in interactive discussion on emotions associated with change (guilty, anxious, sadness, hopeful, confident, exhausted, etc). Pt along with peers identified barriers that may prevent one from making change which included; fear of the unknown, feeling overwhelmed, and self-doubt. Pt is mostly quiet during group sessions, but she was taking notes and appeared involved. Benefited from increased awareness of emotions related to change, the change process, and benefits/barriers to change. Will continue IOP tx to reduce self-sabotaging behaviors, gain healthy coping skills, and improve distress tolerance. Narrative Note: []
--- NOTE | 2021-03-10 11:00 | BH.SGPN.GN ---
Behaviors/Verbalizations/Mental Status: []Client alert and oriented, neatly dressed and groomed. Eye contact fair. Motor activity appropriate. Speech within normal limits. Affect congruent, mood euthymic. Thoughts linear, logical, no signs of hallucinations or delusions. Client Response/Progress/Benefit: []Client responded well to session AEB taking notes and contributing to discussion. Client contributed during psychoeducation on the change process and different emotions in each stage of change. Client identified a change client would like to make to improve mental health which was to change the way I am in relationships by adding more positive qualities.? Client reports belief she is currently in the preparation stage as client has started to learn about healthy relationships and skills to manage emotions. Client stated continuing to learn coping skills and attend therapy are ways to help her get to action stage of change. Appeared to benefit from identifying what stage of change client is in and identifying strategies to overcome barriers. Will continue IOP tx to reduce intensity of symptoms, increase healthy coping and prevent decompensation.
--- NOTE | 2021-03-10 13:40 | BH.MDN_ITS ---
Multi-Disciplinary Note - Note 45-min Individual Time Started:: 09:05 Date: 03/10/21 Purpose of session/treatment goals addressed:: Addressed goal 1 from MTP. Eye Contact:: Fair Motor Activity:: Appropriate Appearance:: Casual Speech:: Appropriate Mood:: Anxious, Dysthymic Thoughts:: Linear, Logical, No evidence of hallucinations/delusions noted Staff Interventions:: psychoeducation on: - healthy vs unhealthy vs abusive relationships, CBT techniques, rapport building, goal setting, taught coping skills Client Response:: Pt responded well to session AEB pt openly sharing thoughts and feelings. Pt stated feeling more stable this week because haven't had as intense feelings or thoughts. Pt stated she has been ruminating about one of her friendships. Shared her roommate in [place] constantly leaves lights on and not close cabinets in kitchen which frustrates pt. Pt stated she has been having thoughts of wanting to block this friend. With assistance from pt she agreed blocking this friend is irrational and not in her best interest at this time. Therapist helped pt gain awareness that her emotions and behavioral urges do not meet the size of the problem. Discussed more appropriate ways to handle this situation, like having a direct conversation with her roommate when returns to [place]. Pt shared she doesn't know what healthy relationships look like. Through education from therapist about healthy, unhealthy and abusive relationships pt stated she recognizes she has several unhealthy relationship qualities. Pt stated she doesn't communicate sometimes in very healthy ways, is distrustful to others, and can be disrespectful to others when really mad. Pt reported she recognizes her distorted thought patterns negatively impact her belief about others which impacts her behavior. Pt agreeable to complete thought log for homework. Risks/Concerns:: denies suicidal/homicidal ideation, plan or intention to date. Progress Toward Goals/Plan:: Progress noted with pt reporting improved stability this week and stopped self from acting on impulsive urge to block her roommate on social media. Pt continues to struggle with distorted thought patterns, impuslive negative urges, and lacks healthy relationship skills. Pt continuing to use marijuana which could be barrier to treatment. Pt has relied on marijuana for the last 2 years to keep her emotions in check, but now seems to have a ps ychological dependence on the substance. Since being home with limited access to marijuana she has increased her alcohol consumption. Pt recognizes her substance use is probably not helping her treatment. Pt to continue IOP to increase healthy coping skills, challenge distorted thought patterns and prevent decompensation. Time Stopped:: 09:50
== END 2021-03-12 23:59 ==
LOC: BHIOP 08:30
PROVIDERS: PCP Family Medicine; Referring Provider Psychiatry & Neurology Psychiatry; Visit Provider Psychiatry & Neurology Psychiatry
DX: F31.9 Bipolar disorder, unspecified (principal); Z79.899 Other long term (current) drug therapy
CPT/HCPCS: S9480; 90834; 90837; 90853

== ENCOUNTER 2021-03-13 09:00 | Outpatient (RCR) | payer OTHER, SELFPAY ==
[2021-03-13 00:33] VITALS: BP 124/88; PULSE 85
--- NOTE | 2021-03-13 09:00 | BH.SGPN.GN ---
Behaviors/Verbalizations/Mental Status: [] Eye contact is good. Motor activity is appropriate. Appearance is casual. Speech is appropriate. Mood is depressed. Affect is flat. Thoughts are linear and logical. No evidence of psychosis. Reviewed daily symptom tracker sheet with no reports of suicidal ideations, plan, or intent. Client Response/Progress/Benefit: [] Client was engaged throughout group session. Client reported her emotion of the day as ?sad?. Client discussed smoking marijuana this weekend, which caused her to have a panic attack. Client reported using grounding to cope with panic attack. 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 Progress noted AEB client reported using grounding, but client continues to struggle with using substances to cope. Appeared to benefit from supportive environment. Will continue IOP treatment to increase application of healthy coping skills to increase client functioning and reduce depression. Narrative Note: []
--- NOTE | 2021-03-13 10:10 | BH.SGPN.GN ---
Behaviors/Verbalizations/Mental Status: []Client alert and oriented, casually dressed and groomed. Eye contact good. Motor activity appropriate. Speech within normal limits. Affect constricted, mood dysthymic. Thoughts linear, logical, no signs of hallucinations or delusions. Client Response/Progress/Benefit: [] Client engaged in session AEB taking notes, contributing to discussion, and providing examples throughout. Client assisted group with identifying benefits of setting boundaries such as improved relationships, reduced anxiety, increased sense of self-respect, and feeling validated. Listened during psychoeducation on different types of boundaries. Client stated struggles with emotional boundaries, reporting she is hypersensitive and feels emotions more intensely. Client seemed to benefit from increased awareness of how boundaries impact mental health and the different types of boundaries there are. Will continue IOP tx to continue use of healthy coping, challenge distorted/negative thought patterns, decrease impulsive actions, and prevent decompensation.
--- NOTE | 2021-03-13 11:10 | BH.SGPN.GN ---
Behaviors/Verbalizations/Mental Status: []Client alert and oriented, casually dressed and groomed. Eye contact fair. Motor activity appropriate. Speech within normal limits. Affect constricted, mood dysthymic. Thoughts linear, logical, no signs of hallucinations or delusions. Client Response/Progress/Benefit: []Client responded well to session AEB listening attentively to peers and providing input. Client engaged in the boundary self-assessment and was attentive during psychoeducation on the different boundary styles. Client stated on the self-assessment she identified having a fear of vulnerability which contributes to her being mean to others to push them away. Client reported she recognizes impact her rigid boundaries has on relationships. Client was given a handout on strategies for healthy boundary setting. Will continue IOP tx to decrease impulsive actions, improve emotion regulation and prevent decompensation.
--- NOTE | 2021-03-14 09:05 | BH.SGPN.GN ---
Behaviors/Verbalizations/Mental Status: [] Eye contact is good. Motor activity is appropriate. Appearance is casual. Speech is Appropriate. Mood is depressed. Affect is flat. Thoughts are linear and logical. No evidence of psychosis. Reviewed daily check in sheet and no reports of suicidal ideations or intent. Client Response/Progress/Benefit: [] Pt participated when prompted. Attentive. Daily symptom tracker notes 2/5 for anger and depression. Emotion for today is Calm. Shared with the group that she had a bad day yesterday. Began to ruminate after group counseling yesterday specifically on the topics discussed on boundaries. She felt sad, upset, and lonely which led to isolation. She admits to buying and smoking weed. She had been almost 2 weeks sober. Reports that a win was that she only had one joint. Insight that she utilizes weed to self-medicate and obtain immediate results, however understands that weed has negative impact on her in the long run. Group encouraged her to look at yesterday's events to identify anything that she could have done differently. Admits that she knew she was decompensating and it would have been best to have done some opposite action or reframing thoughts. Group also provided feedback on some other skills that are useful to them which was beneficial for patient. Pt unable to identify progress due to depressive episode and relapse. Will continue in IOP to maintain safety, increase healthy coping, and improve functioning. Narrative Note: []
--- NOTE | 2021-03-14 10:15 | BH.SGPN.GN ---
Behaviors/Verbalizations/Mental Status: []Client alert and oriented, neatly dressed and groomed. Eye contact good. Motor activity appropriate. Speech within normal limits. Affect flat, mood depressed. Thoughts linear, logical, no signs of hallucinations or delusions. Client Response/Progress/Benefit: []Pt was passive during group session as pt was attentive and taking more notes, but was quiet. Attentive during psychoeducation and discussion on the importance of goal-setting with the group. Group identified potential benefits of having goals to include: to better oneself, increase self-confidence, improve relationships, create better boundaries, and improve mental health. Group also worked together to identify barriers to goal-setting which included; self-doubt, fear of failure, fear of success, and lack of motivation. Pt declined to identify any personal barriers that keep pt from setting or reaching goals. Benefited from increased awareness of benefits and barriers to goal-setting. Pt continues to be a passive participant in group which may be hinder pt from making significant progress. Will continue IOP tx to increase mood stability, reduce impulsivity, and gain healthy coping skills. Narrative Note: []
--- NOTE | 2021-03-14 11:18 | BH.SGPN.GN ---
Behaviors/Verbalizations/Mental Status: []Client alert and oriented, casually dressed and groomed. Eye contact fair to good. Motor activity appropriate. Speech within normal limits. Affect constricted, mood anxious and depressed. Thoughts linear, logical, no signs of hallucinations or delusions. Client Response/Progress/Benefit: []Pt was an active participant in group discussions and activities. Engaged in activity. Pt identified a SMART goal for the next week is to: Work on character and fitness paperwork for 20 minutes a day for the next week. Pt reported this would benefit her mental health by ?helping me to get a job to eventually move back to [place]?. Identified no motivation as a potential barrier to completing this goal. Pt able to identify several solutions, such as opposite action, that can help overcome identified barriers. Benefited from group by being able to utilize SMART educate to create a goal. Pt to continue IOP to stabilize mood, increase utilization of healthy coping and self-care, reduce depression, as well as prevent decompensation. Narrative Note: []
--- NOTE | 2021-03-16 09:05 | BH.SGPN.GN ---
Behaviors/Verbalizations/Mental Status: [] Eye contact is good. Motor activity is appropriate. Appearance is casual. Speech is Appropriate. Mood is depressed. Affect is flat. Thoughts are linear and logical. No evidence of psychosis. Reviewed daily check in sheet and no reports of suicidal ideations or intent. Client Response/Progress/Benefit: [] Pt participated when prompted. Attentive. Daily symptom tracker notes 06/17 for anxiety. Mental health wins include continuing with goal of completing goals of studying and accomplishing tasks. Admitted to group that she has smoked weed for the past several days. Insight regarding how this negatively impacts anxiety as well as her memory, concentration, and test-taking. She described having the weed around as being a comfort. Group provided feedback, suggestions, and encouragement which was beneficial. Pt has insight and awareness of how her unhealthy skills impact her however continues to see weed as comfort and immediate escape from distress. Limited progress. Will continue in IOP to increase healthy coping and prevent decompensation. Narrative Note: []
--- NOTE | 2021-03-16 10:11 | BH.SGPN.GN ---
Behaviors/Verbalizations/Mental Status: []Client alert and oriented, casually dressed and groomed. Eye contact good. Motor activity appropriate. Speech within normal limits. Affect constricted, mood depressed and anxious. Thoughts linear, logical, no signs of hallucinations or delusions. Client Response/Progress/Benefit: []Pt was a semi-active participant in group discussion, taking notes but continues to struggle with providing input throughout. Attentive during psychoeducation on communication styles. Along with peers, pt participated in providing insight into the benefits to effective communication on mental health which included; helps us get needs met, resolves problems, improves relationships, maintains boundaries, and prevents additional conflict. Identified ?Communication is important because it helps us keep from the mind reading and other distortions?. Pt along with peers able to identify ways that communication can be misinterpreted. Pt noted ?Negative assumptions lead to shutting down and not communicating?. Pt reported connecting with ?distortions? as a potential communication barrier, discussing that she often avoids communication as a result. Benefited from increased awareness of different communication barriers, styles, and the importance of communicating effectively to improve mental wellness. Will continue IOP tx to prevent decompensation, learn healthy coping skills, stabilize mood, and improve overall functioning. Narrative Note: []
--- NOTE | 2021-03-16 11:10 | BH.SGPN.GN ---
Behaviors/Verbalizations/Mental Status: []Client alert and oriented, casually dressed and appropriately groomed. Eye contact good. Motor activity appropriate. Speech WNL. Affect constricted, mood dysthymic. Thoughts linear, logical, no signs of hallucinations or delusions. Client Response/Progress/Benefit: []Client responded well to session AEB client listening attentively to others and providing input during group discussion on the pay offs and costs of the different communication styles. Client stated she is most often passive aggressive or aggressive communicator. Client reported this has led to loss of many relationships. Attentive during psychoeducation on interpersonal DBT skill SRIDEVI and client selected a communication skill to practice. Client selected the skill of describing the problem because sometimes she just jumps to expressing her emotions and others don't know the problem. Client seemed to benefit from increasing awareness of healthy strategies to improve communication. Will continue IOP tx to maintain gains, increase healthy coping and prevent decompensation.
--- NOTE | 2021-03-16 14:41 | BH.MDN ---
Multi-Disciplinary Note - Note 60-min Individual Time Started:: 12:05 Date: 03/16/21 Purpose of session/treatment goals addressed:: Purpose of session was to address goals 1 and 2 of MTP. Eye Contact:: Fair Motor Activity:: Appropriate Appearance:: Casual Speech:: Appropriate Mood:: Anxious, Dysthymic Affect:: Constricted Thoughts:: Linear, Logical, No evidence of hallucinations/delusions noted Staff Interventions:: thought challenging, motivational interviewing - decisional balance worksheet about stopping marijuana use., psychoeducation on: - addiction brain, CBT techniques, goal setting Client Response:: Pt reported she completed homework from last session of doing thought log. On pt's thought log she reported when boyfriend 1 didn't respond to me as the situation which led her to think He doesn't like me. I need to get more boyfriends. I need marijuana. With assistance from therapist pt able to reframe distorted thought he doesn't like me to maybe he is busy which is why he didn't respond to my text. Maybe this relationship isn't healthy for me at this time. Pt able to reframe several of her distorted thoughts independently with some coaching from therapist. Pt reported she can see benefit from writing down thoughts to help her recognize which thoughts are rational vs irrational. Pt reported she does have three boyfriends right now and is talking to additional men on a dating platform. Pt stated sh recognizes she is doing this to numb herself and seek valadation. Pt stated she recognizes this isn't healthy for her and won't help her treatment process. Pt reported she has returned to smoking all day again. Pt stated she is starting to realize smoking isn't helping her. Completed decisional balance worksheet together in session about smoking marijuana. Pt able to identify pros and cons from all sides. Pt stated she doesn't want to continue to smoke because the costs of smoking are not worth it. Pt stated her goal for the week is to not buy marijuana or smoke alone. Connected with psychoeducation about addiction brain. Discussed importance of getting out of house and doing things she enjoys to replace the behavior of smoking. Risks/Concerns:: pt denies suicidal/homicidal ideation, plan or intention to date. Progress Toward Goals/Plan:: Progress noted with pt showing increased awareness of distorted thought patterns and impact thoughts have on her behavior. Pt continuing to engage in unhealthy behaviors to seek external validation. Pt reports returning to everyday use of marijuana, but does report desire to decrease use. Pt to continue IOP to increase consistent use of healthy coping, challenge distorted thoughts, decrease use of marijuana and prevent decompensation. Time Stopped:: 13:00
--- NOTE | 2021-03-20 09:05 | BH.SGPN.GN ---
Behaviors/Verbalizations/Mental Status: [] Eye contact is good. Motor activity is appropriate. Appearance is disheveled. Speech is Appropriate. Mood is depressed. Affect is flat. Thoughts are linear and logical. No evidence of psychosis. Reviewed daily check in sheet and pt reports 1/5 for suicidal thoughts and 0/5 for intent. Client Response/Progress/Benefit: [] Pt participated at times during group discussion. Attentive. Daily symptom tracker notes 3/5 for depression and 2/5 for anxiety. Mental health win include managing her anger and annoyance over the weekend. Pt was tearful when talking about stressors. Shared that she is fearful that she will not succeed in her career and life and will just smoke weed in her parent's basement. Talked at length about her fear of failure and fear of rejection which is keeping her stuck. Fearful that she will get rejected in job interviews and will not be the best in her career. Group was supportive and provided some feedback on FOF, growth mindset, and absolute thinking. No progress noted. Benefited from group support, encouragement, and feedback. Will continue in IOP to maintain safety, increase healthy coping, and improve functioning. Narrative Note: []
--- NOTE | 2021-03-20 10:13 | BH.SGPN.GN ---
Behaviors/Verbalizations/Mental Status: []Client alert and oriented, casually dressed and groomed. Eye contact good. Motor activity appropriate. Speech within normal limits. Affect constricted, mood anxious, depressed. Thoughts linear, logical, no signs of hallucinations or delusions. Client Response/Progress/Benefit: []Client receptive to session, though remaining a mostly passive participant throughout. Taking notes and remaining attentive as the group brainstormed the positive and negative aspects of stress on physical and mental health. Group did well to identify the benefits of stress as well as the impact of distress on performance and mental health. Client identified their personal top stressors as: relationships/friendships, living in [place], job/career, and mental health. Client reports when the stress overflows client reacts with impulsive spending, avoidance, and substance use. Shared she has found mindfulness skills and opposite action to be healthy means of addressing her stressors thus far. Client seemed to benefit from increased awareness of current stressors and impact stress has on mental health. Recommended to continue IOP tx to promote consistent use of healthy coping, improve emotion regulation and reduce avoidance, as well as reduce unhealthy avoidance tactics. Narrative Note: []
--- NOTE | 2021-03-20 11:15 | BH.SGPN.GN ---
Behaviors/Verbalizations/Mental Status: []Client alert and oriented, casually dressed and groomed. Eye contact good. Motor activity appropriate. Speech within normal limits. Affect constricted. Mood dysthymic and anxious. Thoughts linear, logical, no signs of hallucinations or delusions. Client Response/Progress/Benefit: []Client engaged in session AEB listening attentively to others and providing input throughout discussions. Client was an active participant in challenge activity. Client remained attentive during discussion about the 4 A's of managing stress and expressed connecting with the various benefits of each. Shared she would like to work on the skill of adapting job expectations and redefining success/failure. 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 Client seemed to benefit from increased awareness of the impact of stress on mental health and increasing repertoire of stress management strategies. Will continue IOP tx to prevent decompensation, continue to promote thought challenging, and healthy coping skills. Narrative Note: []
--- NOTE | 2021-03-22 09:04 | BH.SGPN.GN ---
Behaviors/Verbalizations/Mental Status: []Client alert and oriented, casually dressed and groomed. Eye contact good. Motor activity appropriate. Speech within normal limits. Affect congruent, mood anxious, euthymic. Thoughts linear, logical, no signs of hallucinations or delusions. Reviewed client?s symptom tracker, no risk for suicidal ideation, plan, or intent as of 03/22/21 Client Response/Progress/Benefit: []Client receptive to session, attentive and an active participant throughout. Client reports feeling ?hopeful this morning as she is taking several steps to improve her mood and motivation levels. Shared that although she recently had a relapse on marijuana, she got rid of her supply and has been using healthy distractions as well as positive self-talk to maintain sobriety. Expressed feeling more confident in her ability to do so now that she has developed several additional healthy coping strategies. Client went on to discuss attempts to redefine her definition of failure and success to aid in challenging her expectations of self and improving her ability to be self-compassionate in times of setback. Appeared to benefit from reflecting upon areas of progress and skills that have been helpful so far. Recommended continued IOP tx to further promote healthy decision making and sobriety, reduce avoidance and isolating behaviors, as well as prevent decompensation. Narrative Note: []
--- NOTE | 2021-03-22 10:10 | BH.SGPN.GN ---
Behaviors/Verbalizations/Mental Status: []Client alert and oriented, well dressed and groomed. Eye contact fair. Motor activity appropriate. Speech within normal limits. Affect congruent, mood euthymic. Thoughts linear, logical, no signs of hallucinations or delusions. Client Response/Progress/Benefit: []Client responded well to session AEB client participating in group discussion and listening attentively to others. Group was primarily education based, with client participating in small group discussion regarding traits that promote resilience. Client participated in group discussion when possible, client was pulled to meet with psychiatrist. Client appeared to benefit from psychoeducation. Will continue IOP treatment to prevent decompensation and increase daily functioning. Narrative Note: []
--- NOTE | 2021-03-22 11:12 | BH.SGPN.GN ---
Behaviors/Verbalizations/Mental Status: []Client alert and oriented, casually dressed and groomed. Eye contact good. Motor activity appropriate. Speech within normal limits. Affect flat, mood dysthymic. Thoughts linear, logical, no signs of hallucinations or delusions. Client Response/Progress/Benefit: []Client responded well to session AEB completing the resilience worksheet provided. Client participated in the discussion of how each resiliency component can help increase personal resiliency and worked cooperatively with group to identify strategies to enhance each of the components discussed. Client reported she feels she is doing well with implementing the resilience component of ?keeping things in perspective,? ?self-awareness,? and ?taking care of yourself.? Client reports she wants to improve the personal resilience component of ?taking decisive action.? Client reports she wants to work on completing her resume. Client seemed to benefit from discussing strategies for improving personal resilience and identifying resilience traits client already possesses. Will continue IOP tx to replace unhealthy coping skills, increase mood stability, and reduce avoidance. Narrative Note: []
--- NOTE | 2021-03-22 12:36 | PCM.BH.PN_ITS ---
Progress Note Progress Note: History of Present Illness/Interim History: [] The patient is a 25-year-old single, female with a history of depression and anxiety who is seen in follow-up at the [facility] behavioral health IOP program. I last saw the patient 3 weeks ago and at that time she was started on Abilify 2 mg daily. She has been taking this for 3 weeks and has tolerated the medication well. She feels much less irritable and feels that her mood is more stable. However, she still has some fluctuation of mood and some mood swings during the day. She stopped marijuana use for 2 weeks but then relapsed last week and has been using marijuana again somewhat. She denies any alcohol use. She feels she is learning valuable skills in the IOP program. She still has some depressed mood and some crying. She denies any history of self-harm since I saw her last. She has fleeting, passive, suicidal ideation about once a week only. She denies any plan for suicide or active suicidal ideation. She denies any symptoms of mary ann. She denies homicidal ideation, hallucinations or delusions. Current Psychiatric Medications: [] Wellbutrin XL 150 mg p.o. every morning; hydroxyzine 50 mg p.o. at bedtime as needed (the patient says she does sleep the whole night if she takes her hydroxyzine); Abilify 2 mg p.o. daily (x3 weeks now). Mental Status Examination: [] The patient is a 25-year-old female who is seen wearing a mask due to the pandemic and is casually dressed and groomed with good hygiene. She has no psychomotor agitation or retardation. Eye contact is good and speech is normal rate and rhythm and fluent with no pressure. Mood is mildly depressed. Affect is full and normal. Thought process is goal-directed and organized. Thought content: There is evidence of fleeting, passive suicidal ideation when angry about once a week. There is no evidence of active suicidal ideation, homicidal ideation, hallucinations, delusions or symptoms of mary ann. Judgment is intact. Insight: Some present and improving. Impulsivity: High. Diagnoses: [] 1. Bipolar, NOS (F 31.9) 2. Generalized anxiety disorder 3. Strong cluster B traits 4. Marijuana use disorder Plan: [] The patient will continue the IOP program at [facility] as the structure, education, support and group therapy will hopefully prevent worsening of the patient's symptoms which might require hospitalization. She felt safe during the interview and if it anytime she does not feel safe she will let us know or go to the emergency room. The risks, options, possible side effects and complications of the medications were discussed with the patient again and she understands and accepts these. She agrees to increase her Abilify to 5 mg p.o. daily. She will continue to follow-up with her outpatient providers and I will see the patient in follow-up in 1 to 2 weeks and as needed.
--- NOTE | 2021-03-22 13:59 | BH.TPR ---
Treatment Plan Review Date of Admission:: 02/24/21 Date of Treatment Plan Review:: 03/20/21 Admitting Diagnoses:: 1. Bipolar, NOS (F 31.9). 2. Generalized anxiety disorder. 3. Strong cluster B traits. 4. History of marijuana use disorder Current Diagnoses:: 1. Bipolar, NOS (F 31.9). 2. Generalized anxiety disorder. 3. Strong cluster B traits. 4. marijuana use disorder Patient's Response to Treatment:: Pt showing consistent attendance, engages in individual sessions and appears attentive during group sessions. Pt tends to be quiet during group discussions, however takes notes. Pt often completes homework from individual sessions. Status of Current Problems and Symptoms: Ongoing problems. Pt continues to struggle with use of marijuana use, which seems to be negatively impacting mental health. Pt does recognize the negative impact of her marijuana use but struggles with staying sober. Pt also very anxious about trying to find a job. Pt continues to seek external validation by engaging in multiple romantic relationships. Pt shows insight that this could be barrier to her progress. Per pt's DSM 5 scores her overall symptoms decreased by 3%. Problem #1 Problem Name:: mood instabilty Status of Goals:: obj 1 - partially met. Pt is able to identify healthy coping skills like opposite action, thought challenging, and doing things she enjoys. However pt does struggle with consistent application of skills. Obj 2. met with ongoing work encouraged. Per pt's DSM 5 scores at review her depressive symptoms decreased by 25% compared to intake scores. Pt does report improved mood stability with decrease agitation and depression. Team Recommendations:: Treatment team recommends pt continue current goals and objectives. Continue to help pt recognize negative consequences to her mental health from marijuana use and constantly seeking external validation. Problem #2 Problem Name:: anxiety Status of Goals:: obj 1 - partially met. Pt is able to identify calming skills like belly breathing and grounding skills. Has reported use of skills with success. However pt does struggle with consistent application of skills. Obj 2. not met. Per pt's DSM 5 scores at review her anxious symptoms increased by 25% compared to intake scores. Pt does report anxiety about IOP ending and thinking about needing to apply for jobs in [place] which could attribute to increase in anxiety. Team Recommendations:: Treatment team recommends pt continue current goals and objectives. Reinforce calming skills to manage anxious symptoms and encourage pt to apply for jobs versus avoiding what is making her anxious.
--- NOTE | 2021-03-23 09:00 | BH.SGPN.GN ---
Behaviors/Verbalizations/Mental Status: []Client alert and oriented, casually dressed and groomed. Eye contact good. Motor activity appropriate. Speech within normal limits. Affect flat-incongruent to mood, mood euthymic. Thoughts linear, logical, no signs of hallucinations or delusions. Reviewed client?s symptom tracker, no risk for suicidal ideation, plan, or intent as of 03/23/21 Client Response/Progress/Benefit: C[]Client responded well to session, receptive to feedback from peers. Client reports feeling optimistic this morning as client starts her journey of sobriety from marijuana today. Client stated she and her IOP therapist created a plan to promote sobriety and client is looking forward to quitting smoking. Client reports feeling worried about the urges to use and the group provided support and ideas on how to avoid urges. Client shared smoking was often her go to avoidance technique, so now that she will not be smoking, client plans to apply for jobs. This makes client anxious, but client stated she can use her grounding skills and turn to hobbies to manage anxiety. Appeared to benefit from group support and coping skill ideas. Will continue IOP tx to promote mood stability and gain healthy coping skills to replace unhealthy coping skills. Narrative Note: []
--- NOTE | 2021-03-23 10:12 | BH.SGPN.GN ---
Behaviors/Verbalizations/Mental Status: []Client alert and oriented, casually dressed and groomed. Eye contact fair to good. Motor activity appropriate. Speech within normal limits, quiet. Affect congruent, mood anxious and euthymic. Thoughts linear, logical, no signs of hallucinations or delusions Client Response/Progress/Benefit: []Client receptive of session, engaged throughout AEB client actively listening and contributing to discussion, as well as taking notes. Client completed worksheet identifying personal pitfalls impacting mental health progress. Client identified the following pitfalls: substance abuse, harbor grudges or think about getting even, look for people?s faults, blanket generalizations, insisting on having the last word, jump to conclusions about others motives, and need for external validation. Group brainstormed different coping skills to help manage pitfalls. Client selected ?all or nothing thinking/blanket generalizations? as the pitfall client wants to overcome. Client plans to work on this by thought challenging, recognizing that there is often a ?middle ground?, challenging herself to give people the benefit of the doubt, and grounding. Benefited from identifying personal pitfalls and strategies to overcome these pitfalls. Will continue IOP tx to improve communication of needs, maintain stability, promote ongoing sobriety, and continue to encourage small goal completion. Narrative Note: []
--- NOTE | 2021-03-23 14:43 | BH.MDN_ITS ---
Multi-Disciplinary Note - Note 60-min Individual Time Started:: 10:10 Date: 03/23/21 Purpose of session/treatment goals addressed:: Purpose of session was to address goals 1 and 2 from MTP. Eye Contact:: Good Motor Activity:: Appropriate Appearance:: Casual Speech:: Appropriate Mood:: Euthymic Affect:: Congruent Thoughts:: Linear, Logical, No evidence of hallucinations/delusions noted Staff Interventions:: thought challenging, CBT techniques, reviewed DSM-5, goal setting Client Response:: Pt completed homework from last week in which she identified how her beliefs impact her behaviors. Pt one of her beliefs is she is unl ovable. Pt stated this leads her to keep others at a distance since no one will love her. Then she pushes others away but gets mad if they leave her. Pt stated she will then devalue the person and block them from her life. Pt identifies this as her self-sabotage to avoid getting hurt pattern. Pt identified consequences of this pattern are being alone and getting the opposite of what she actually wants in life. Pt stated she finished her last marijuana cartridge and her goal is to get rid of her marijuana pen and cartridge. Pt stated she doesn't want to smoke for the next week. Pt identified to stay sober she will: decrease how much she is sitting around her house, use grounding to bring herself back to reality, thrift as a distraction, go to different yoga classes and maybe try to sew again. Discussed DSM 5 scores for treatment progress review. Pt stated scores were still high because when she completed survey on Saturday she wasn't in the best mood. Pt reported she notes progress with decreased anxiety, depression and improved awareness. Risks/Concerns:: Denies suicidal/homicial ideation, plan or intention to date. Progress Toward Goals/Plan:: Progress noted AEB pt's report of decreased anxiety and depression. Pt reports improved mood stability. Pt showing improved awareness of distorted thoughts and ability to stop self on occassion from acting on her impulsive urges. Pt has goal of not smoking marijuana for the next week. Discussed discharge in two weeks, will evaluate mood/progress next week to determine if pt is ready. Encouraged pt to contact one of the provided referrals to establish with outpatient psychiatry. Pt already connected with outpatient counselor. Pt to continue IOP to continue use of healthy coping, maintain sobriety from marijuana, and prevent decompensation. Time Stopped:: 11:05
--- NOTE | 2021-03-27 09:05 | BH.SGPN.GN ---
Behaviors/Verbalizations/Mental Status: [] Eye contact is good. Motor activity is appropriate. Appearance is casual. Speech is Appropriate. Mood is euthymic. Affect is full. Thoughts are linear and logical. No evidence of psychosis. Reviewed daily check in sheet and pt denies any suicidal thoughts or intent. Client Response/Progress/Benefit: [] Pt was an active participant in group discussion on improving sleep. Attentive. Provided appropriate feedback. Daily symptom tracker notes 2/5 for depression and 1/5 for anxiety. Emotion for today is stable. Pt states I'm feeling better. Reports increased motivation and energy. Completed resume. Utilizing healthy coping skills such as reframing and thought challenging. I'm starting to get my shit together. Reports managing her emotions and stressors over the weekend. Also reports that she has not used weed in 3-4 days. Awareness of how this has positively impacted her mental health. Progress noted. Will continue in IOP to maintain gains, prevent decompensation, and increase healthy coping skills. Narrative Note: []
--- NOTE | 2021-03-27 09:58 | BH.SGPN.GN ---
Behaviors/Verbalizations/Mental Status: []Client alert and oriented, casually dressed and groomed. Eye contact fair. Motor activity appropriate. Speech within normal limits. Affect constricted, mood euthymic. Thoughts linear, logical, no signs of hallucinations or delusions. Client Response/Progress/Benefit: []Client responded well to session AEB client contributing to group discussion and listening attentively to others. Client discussed the topic of self-care, stating without it ?you don?t have anything else to give? and discussed how self care is different for everyone. Client identified different types of self care, including boundary setting. Client participated in small group discussion regarding debunking the myths of self-care. Client?s group discussed the myths of having more important things to do, self care taking too much time, and self care has to be fun. Client?s group discussed making self care a priority, choosing self care activities that can be done while doing other things, and that self care is not always fun as the realities of self care. Client appeared to benefit from further understanding of the importance of self-care and options. Progress noted in client?s increased engagement and participation this group session. Will continue IOP treatment to prevent decompensation and improve mood stability. Narrative Note: []
--- NOTE | 2021-03-27 11:01 | BH.SGPN.GN ---
Behaviors/Verbalizations/Mental Status: []Client alert and oriented, casually dressed and groomed. Eye contact good. Motor activity appropriate. Speech within normal limits. Affect congruent, mood euthymic, anxious. Thoughts linear, logical, no signs of hallucinations or delusions. Client Response/Progress/Benefit: []Client engaged participant AEB client taking notes and providing input at times during discussion; however, continues to remain mostly passive in participation. Attentive throughout group discussion on the various areas of self-care, benefits, and types of self-care activities for each area. Client completed worksheet which identified current self-care practices and what self-care activities client wants to start using. Client noted she is doing well in the areas of spiritual, psychological, and physical self-care. Discussed that she would like to begin improving in social and emotional self-care areas. Identified that she could begin doing so by listening to more positive music, as well as trying to reach out to new people and establish new friendships. Appeared to benefit from completing the self-care evaluation and gaining insights into current self-care practices, as well as identifying areas in which she would like to improve upon. Will continue IOP tx to continue to promote mood stability, maintain sobriety, improve self-care, and prevent decompensation. Narrative Note: []
--- NOTE | 2021-03-28 09:00 | BH.SGPN.GN ---
Behaviors/Verbalizations/Mental Status: []Client alert and oriented, casually dressed and groomed. Eye contact good. Motor activity appropriate. Speech within normal limits. Affect constricted, mood euthymic. Thoughts linear, logical, no signs of hallucinations or delusions. Reviewed client?s symptom tracker, no risk for suicidal ideation, plan, or intent as of 03/28/21 Client Response/Progress/Benefit: []Client responded well to session, attentive and receptive to feedback. Client reports feeling hopeful this morning as client is 5 fives sober from marijuana. Client stated she is finally at the point where she does not want to smoke anymore which has increased her motivation. Because client is not smoking, she has been working on goals that she had been avoiding such as completing her resume. Client is still stressed about finding a job, but client is feeling more confident about this now. Progress noted in client's ability to refrain from smoking and her implementation of healthy coping skills. Will continue IOP tx to promote gains, increase distress tolerance skills, and further improve functioning. Narrative Note: []
--- NOTE | 2021-03-28 10:05 | BH.SGPN.GN ---
Behaviors/Verbalizations/Mental Status: []Eye contact is good. Motor activity is appropriate. Appearance is neat. Speech is Appropriate. Mood is euthymic. Affect is congruent. Thoughts are linear and logical. No evidence of psychosis. Client Response/Progress/Benefit: []Pt was an active participant in group discussion AEB taking notes and providing input throughout. Attentive during psychoeducation reviewing internal and external obstacles and provided examples throughout. Participated in the reflection activity in which clients candi pictures depicting their current and desired reality and shared with the group. Pt stated [place] is starting to feel hopeful because taking steps to move to an area with more support. Reported desired reality is to be successful with a career and surround self with healthy supports. Benefited from group by increasing current awareness and expectations for progress. Pt to continue IOP to stabilize moods, improve daily functioning and prevent decompensation. Narrative Note: []
--- NOTE | 2021-03-28 11:10 | BH.SGPN.GN ---
Behaviors/Verbalizations/Mental Status: [] Eye contact is good. Motor activity is appropriate. Appearance is casual. Speech is Appropriate. Mood is depressed. Affect is flat. Thoughts are linear and logical. No evidence of psychosis. Client Response/Progress/Benefit: [] Pt was an active participant in group discussion and activity. Attentive during psychoeducation. Provided appropriate feedback and insight. Pt identified obstacles that have prevented them from obtaining desired reality being decreased motivation, substance abuse, over-thinking, and cognitive distortions, and rigid boundaries. Identified strategies to promote emotional wellness and overcome obstacles which included; challenge and reframing negative thoughts and utilize thought log. Benefited from identifying obstacles in pt's path to mental wellness and developing strategies to minimize the impact of these obstacles. Will continue in IOP to maintain gains, increase healthy coping, and to improve functioning. Narrative Note: []
--- NOTE | 2021-03-30 09:09 | BH.SGPN.GN ---
Behaviors/Verbalizations/Mental Status: []Eye contact is good. Motor activity is appropriate. Appearance is casual. Speech is Appropriate. Mood is euthymic and hopeful. Affect is congruent. Thoughts are linear and logical. No evidence of psychosis. Reviewed daily check in sheet and no reports of suicidal ideations or intent. Client Response/Progress/Benefit: []Pt responded well to session AEB sharing thoughts and feelings and listening attentively to peers. Pt stated mental health positive as being 8 days sober from marijuana. Pt stated using positive distractions like being around friends and family and doing sewing projects has helped her maintain sobriety. Pt reported additional mental health positives as completing most of her resume and looking at jobs. 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 Progress noted with pt reporting sobriety from marijuana, using skills more consistently and reporting feeling stable. Pt to continue IOP to maintain gains, continue use of healthy coping and prevent decompensation. Narrative Note: []
--- NOTE | 2021-03-30 10:12 | BH.SGPN.GN ---
Behaviors/Verbalizations/Mental Status: []Client alert and oriented, neatly dressed and groomed. Eye contact good. Motor activity appropriate. Speech within normal limits. Affect constricted, mood euthymic. Thoughts linear, logical, no signs of hallucinations or delusions Client Response/Progress/Benefit: []Pt was an active participant in group discussion and activity. Attentive during psychoeducation on what it means to take action. Pt identified symptoms she wants to take gain control over which included avoidance, needing external validation, substance use, and fear of vulnerability. Reports belief that if she could regain control over her need for validation, she would be ?going places I want to go and doing things I want to do.? Increased insight into what could be holding pt back from mental wellness and the importance of taking action on symptoms and obstacles rather than avoiding or ignoring. Will continue in IOP to further improve mood stability, maintain sobriety, and reduce avoidance. Narrative Note: []
--- NOTE | 2021-03-30 11:12 | BH.SGPN.GN ---
Behaviors/Verbalizations/Mental Status: []Client alert and oriented, neatly dressed and groomed. Eye contact good. Motor activity appropriate. Speech within normal limits. Affect congruent, mood euthymic. Thoughts linear, logical, no signs of hallucinations or delusions. Client Response/Progress/Benefit: []Client responded well to session, taking notes and participating in worksheet discussion. Client set a goal to gain control over isolation. Client plans to work on this by not sitting alone in her basement for the next seven days. Client reports she will need support from her family and therapist as well as engaging in personal hobbies. Appeared to benefit from identifying a small goal to benefit mental health. Progress noted as client reports being sober for over a week. Will continue IOP tx to increase emotional regulation skills, promote gains, and further improve functioning. Narrative Note: []
--- NOTE | 2021-03-30 14:39 | BH.MDN_ITS ---
Multi-Disciplinary Note - Note 45-min Individual Time Started:: 12:08 Date: 03/30/21 Purpose of session/treatment goals addressed:: Purpose of session was to address goals 1 and 2 from MTP. Eye Contact:: Good Motor Activity:: Appropriate Appearance:: Casual Speech:: Appropriate Mood:: Euthymic Affect:: Congruent Thoughts:: Linear, Logical, No evidence of hallucinations/delusions noted Staff Interventions:: CBT techniques, discharge planning - started creating maintenance plan, strengths perspective, goal setting Client Response:: Pt stated she has been sober for 8 days from marijuana. Pt reported she had a few urges but has been able to fight off the urge by using distraction and grounding. Pt stated she did get back into sewing by completing two different sewing projects. Pt stated she is feeling more clear headed now that she has been sober. Pt reported continuing to feel stable and does feel ready for discharge from [facility] next week. Pt worked with therapist to start creating maintenance plan. Pt identified things needs to do daily include: thought challenge, dialectal thinking, exercise, take medication, dishes, personal hygiene, do makeup, grounding and cook one meal. Pt identified weekly things to include: 3-4 times go to yoga, therapy, to-do list, weekly check-in, engage in two hobbies, hang out with a friend once a week, plan weekly menu, and laundry. Pt stated monthly items to include: make connection with a new person, medication appointment, mopping floor and chores don't need done monthly. Pt agreeable to reflect over next week on any other skills/strategies to wants to put on maintenance plan. Risks/Concerns:: denies suicidal/homicidal ideation, plan or intention to date. Progress Toward Goals/Plan:: Progress noted with pt reporting mood stability, 8 days sober from marijuana, increased self-awareness, and more consistent use of healthy coping skills. Pt has goal with outpatient therapist to apply to two jobs by next week. 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 Pt has decrease in avoidance behavior with the things that make her anxious. Plan is for pt to discharge from [facility] next week. Time Stopped:: 12:55
--- NOTE | 2021-04-03 09:00 | BH.SGPN.GN ---
Behaviors/Verbalizations/Mental Status: []Eye contact is good. Motor activity is appropriate. Appearance is casual. Speech is Appropriate. Mood is euthymic and hopeful. Affect is congruent. Thoughts are linear and logical. No evidence of psychosis. Reviewed daily check in sheet and no reports of suicidal ideations or intent. Client Response/Progress/Benefit: []Pt responded well to session AEB pt sharing thoughts and feelings, listening attentively to others and providing feedback to others. Pt [id number] mental health positive as going with family to [place] to go shopping. Pt reported she did smoke marijuana this weekend but did so only with a friend. Pt stated she is proud of herself because her goal is to not buy marijuana or smoke alone. Pt expressed some anxiety about returning to [place] where marijuana is legal. Pt reported additional mental health positive as finding two jobs she will apply to tomorrow and taking time to work on her cover letter for the jobs. Pt stated she has been using grounding and thought challenge to help manage her mental health symptoms. Progress noted with pt reporting improved mood stability, following through with goals, and reporting decreased anxiety/depression. Pt to continue IOP to maintain gains, continue use of healthy coping and prevent decompensation.
--- NOTE | 2021-04-03 10:05 | BH.SGPN.GN ---
Behaviors/Verbalizations/Mental Status: []Client alert and oriented, casually dressed and groomed. Eye contact fair. Motor activity appropriate. Speech within normal limits. Affect flat, mood euthymic. Thoughts linear, logical, no signs of hallucinations or delusions. Client Response/Progress/Benefit: []Client responded well to session AEB contributing to discussion and listening attentively to others. Client connected with anger as a secondary emotion, defining it as ?uncontrollable frustration?. Client participated in anger iceberg activity, identifying experiencing feeling uncomfortable or bored, resentment, fear of abandonment, and vulnerability as triggers of her anger. Discussed her anger warning signs as provoking fights, throwing/hitting objects, isolation, and substance use. Client seemed to benefit from increasing awareness of anger triggers and warning signs. Progress noted in client?s increased contribution in group session. Will continue IOP treatment to increase mood stability, and continue to improve daily functioning. Narrative Note: []
--- NOTE | 2021-04-03 11:04 | BH.SGPN.GN ---
Behaviors/Verbalizations/Mental Status: []Client alert and oriented, casually dressed and groomed. Eye contact good. Motor activity appropriate. Speech within normal limits. Affect congruent, mood anxious and euthymic. Thoughts linear, logical, no signs of hallucinations or delusions. Client Response/Progress/Benefit: [] Pt was engaged throughout AEB participating in discussion and taking notes. Pt did well to work with group to identify internal costs of unmanaged anger. Identified that when unmanaged, her anger has resulted in creating additional problems/stressors, loss of relationships, and maintaining her anxiety. Contributed as participants worked in small groups to brainstorm healthy coping skills for better managing anger which included: reaching out to supports, journaling, taking breaks, exercise, DDD, and looking at the consequences of responding in anger. Pt appeared to benefit from identifying different techniques to manage anger as well as gaining awareness of the potential internal and external costs of anger. Pt selected finding a safe space to ?let it out? as well as using humor to defuse her anger as potential skills for better managing anger. Will continue IOP tx to gain healthy coping skills to maintain stability, continue to promote gains, and prevent decompensation. Narrative Note: []
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
--- NOTE | 2021-04-11 10:15 | BH.SGPN.GN ---
Behaviors/Verbalizations/Mental Status: []Client alert and oriented, casually dressed and groomed. Eye contact good. Motor activity appropriate. Speech within normal limits. Affect congruent, mood euthymic. Thoughts linear, logical, no signs of hallucinations or delusions. Client Response/Progress/Benefit: []Client engaged participant AEB providing contributions during group discussion and listened attentively to peers. Helped group discuss the benefits of relationships as well as the potential factors maintaining unhealthy relationships. Helped group identify characteristics that can lead to unhealthy relationships which included: poor communication, disrespect, poor emotional regulation, blaming others, and substance abuse. Pt identified she struggles with poor communication, sometimes becoming disrespectful with others. Also stated she struggles with distrust for others and being dishonest. Able to connect the negative impact her behaviors have on relationships. Appeared to benefit from increasing awareness of the impact unhealthy relationships can have on mental health. Pt to continue IOP to maintain gains, continue to challenge distorted thoughts and prevent decompensation. Narrative Note: []
--- NOTE | 2021-04-11 11:15 | BH.SGPN.GN ---
Behaviors/Verbalizations/Mental Status: [] Client alert and oriented, casually dressed and groomed. Eye contact fair to good. Motor activity appropriate. Speech within normal limits. Affect congruent, mood euthymic and anxious. Thoughts linear, logical, no signs of hallucinations or delusions. Client Response/Progress/Benefit: [] Client responded well to session, engaged and taking notes. Attentive during psychoeducation about characteristics of healthy, unhealthy, and abusive relationships. Pt identified that they have been working to improve trust within relationships, as well as make more of an effort to reach out to her supports rather than isolate. Reflected upon relationship strengths which pt identified as respecting others when communicating. Appeared to benefit from reflecting upon personal relationship strengths, as well as brainstorming strategies to build healthier relationships. Pt scheduled to continue IOP tx to maintain gains, continue to promote healthy coping skill application, as well as prevent decompensation. Narrative Note: []
== END 2021-04-11 23:59 ==
LOC: BHIOP 09:00
PROVIDERS: PCP Family Medicine; Referring Provider Psychiatry & Neurology Psychiatry; Visit Provider Psychiatry & Neurology Psychiatry
DX: F31.9 Bipolar disorder, unspecified (principal); F41.1 Generalized anxiety disorder; F12.90 Cannabis use, unspecified, uncomplicated; Z79.899 Other long term (current) drug therapy
CPT/HCPCS: S9480; 90834; 90837; 90853

== ENCOUNTER 2021-04-12 09:00 | Outpatient (RCR) | payer OTHER, SELFPAY ==
[2021-04-12 00:35] VITALS: BP 124/88; PULSE 85
--- NOTE | 2021-04-14 09:00 | BH.SGPN.GN ---
Behaviors/Verbalizations/Mental Status: [] Eye contact is good. Motor activity is appropriate. Appearance is casual. Speech is Appropriate. Mood is euthymic. Affect is full. Thoughts are linear and logical. No evidence of psychosis. Reviewed daily check in sheet and no reports of suicidal ideations or intent. Client Response/Progress/Benefit: [] Pt was an active participant in group discussion. Attentive. Provided appropriate feedback. Shared with the group that today is her last day in IOP. She discussed her progress in the program and the skills that have been most beneficial to her (thought challenging/ reframing). She believes that she is communicating more effectively and had more healthy relationships with her family. Hopeful about the future and she has placed several job applications. Her primary stressor is leaving the program and maintain her progress. She has plans to start Aftercare here next week. Progress noted. Benefited from group support, encouragement, and praise. Will be discharged today. Narrative Note: []
--- NOTE | 2021-04-14 10:08 | BH.SGPN.GN ---
Behaviors/Verbalizations/Mental Status: []Eye contact is good. Motor activity is appropriate. Appearance is casual. Speech is Appropriate. Mood is anxious, euthymic. Affect is congruent. Thoughts are linear and logical. No evidence of psychosis. Client Response/Progress/Benefit: [] Pt was an active participant in group discussion and activity. Attentive during psychoeducation on coping skills. Sharing that mindset can help to remind you ?not all thoughts/feelings are rational? and challenge you to find healthy ways to address those thoughts. Pt along with peers worked together to identify unhealthy coping skills such as; avoidance, overbooking yourself, substances, isolation, distracting with other activities. Group was able to identify why people use unhealthy coping skills such as; easy, comfortable, work in the short-term, habit, or it?s what they were taught/learned from others. Pt noted connecting with substance use and avoidance as forms of unhealthy coping she has struggled with. Pt was able to make connection between the activity (tower building) and the importance of having a strong base/foundation of both internal and external coping skills. Benefited from increased understanding of unhealthy coping skills and identified developing healthy internal and external coping skills to manage mental health sx since beginning the IOP program. Pt will discharge from [facility] on this date given progress and is to continue with outpatient providers. Narrative Note: []
--- NOTE | 2021-04-14 10:39 | BH.DS_ITS ---
Discharge Summary - Demographics Date of Admission:: 02/24/21 Discharge Date: 04/14/21 Presenting Problems at Admission:: At admission pt referred to [facility] behavioral health IOP program by family members due to worsening symptoms of depression and increasing inability to function. This had been going on for the past several months. She moved back to [place] from [place] around January 04, 2021 due to worsening mental health issues. 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 She has not applied for jobs yet and wanted to get her mental health improved before doing so. The patient stated that her biggest stressor is relationship issues. She stated that she has never had a friend longer than 2 years and romantic partners have been 6 to 8 months at the longest. She also had low self-esteem an d says I have no identity. She has limited primary support and describes that she only has 1 friend left and her mother to talk to. At admission she endorsed feeling empty, sad, and uncontrollable worries. She had crying episodes and felt hopeless and worthless. Discharge Diagnoses:: 1. Bipolar, NOS (F 31.9). 2. Generalized anxiety disorder. 3. Strong cluster B traits. 4. marijuana use disorder Reason for Discharge:: Pt has made significant treatment progress, improved daily functioning and no longer meets criteria for IOP level of care. - Treatment Progress During Treatment & Response: Per pt's DSM 5 cross-cutting measure scores indicate a 50% decrease in depression, 50% reduction in thoughts of hurting herself, 50% decrease in substance use. Pt's anxiety shows a 25% increase compared to at intake. Pt's increase in anxiety could be attributed to her completing IOP, applying for jobs, and worries about maintaining her progress. Pt reports she has noticed progress with recognizing and challenge all or nothing thinking, improved emotion regulation, improved coping for anxiety and depression, getting involved in activities she used to enjoy doing (sewing), increased motivation, and improved relationships with family. Pt has been able to stop herself from engaging in impulsive urges to cut friends out of her life. Pt has been using marijuana everyday for 2 years. In the last couple weeks pt has used two times when in a social situation. pt has stuck to her personal goal of no longer purchasing marijuana or smoking alone. Pt recognizes the impact her dependence on marijuana was having on her motivation, life goals and relationships. Pt responded well to IOP program AEB consistent attendance, completed homework given in individual sessions and appeared attentive during group sessions. Issues Still to be Addressed:: Pt identifies the following areas as issues to continue to address: improving emotion regulation, continuing practicing identifying/challenging distorted thoughts, working through anxiety/fears, decreasing reliance on external validation to feel worthy, and creating a relapse prevention plan for marijuana use before returning to [place]. Discharge Recommendations/Instructions:: 1. Continue individual counseling with Sera Qiu. 2. Attend [facility] Aftercare program on at 2pm. 3. Pt is waiting to hear back from [place] [phone] to establish appointment for psychiatry services. Discharge Handout: Complete Discharge Handout with client on aftercare options and continuity of care.
--- NOTE | 2021-04-14 11:05 | BH.SGPN.GN ---
Behaviors/Verbalizations/Mental Status: []Client alert and oriented, neatly dressed and groomed. Eye contact good. Motor activity appropriate. Speech within normal limits. Affect congruent, mood euthymic. Thoughts linear, logical, no signs of hallucinations or delusions. Client Response/Progress/Benefit: []Client responded well to session, taking note and contributing at times. Group discussed the different categories of coping skills which included distraction, emotional release, grounding, self-love, and thought challenging. Client's coping skill menu included: DDD, journaling, stargazing, reflecting on progress, and dialectical thinking. Client reported throughout IOP she has learned how to utilize grounding techniques to help with her anxiety. Appeared to benefit from increasing repertoire of healthy coping skills. Will discharge from IOP tx today as client has accomplished her treatment goals and no longer meets criteria for [facility] level of care. Narrative Note: []
--- NOTE | 2021-04-14 11:32 | BH.MDN_ITS ---
Multi-Disciplinary Note - Note 30-min Individual Time Started:: 09:00 Date: 04/14/21 Purpose of session/treatment goals addressed:: Purpose of session was to identify/review treatment progress, discuss areas to continue to work on and solidify aftercare plans. Eye Contact:: Good Motor Activity:: Appropriate Appearance:: Casual Speech:: Appropriate Mood:: Euthymic Affect:: Full Thoughts:: Linear, Logical, No evidence of hallucinations/delusions noted Staff Interventions:: discharge planning, reviewed DSM-5 Client Response:: Pt reported she has noticed significant treatment progress since starting IOP. Pt reported treatment progress to include: decrease in use of marijuana, able to recognize distorted thoughts, improved emotion regulation, decreased depression, able to use healthy coping skills, and improved motivation. Pt stated her relationship with her mom has improved recently as well. Pt reported she has been able to challenge her perspective which helped her see her mom's point of view. Pt stated she has a better understanding of what healthy relationships look like. Pt reported when working with her outpatient counselor she would like to work on continuing to build emotion regulation skills, challenge distorted thoughts, decrease need for external validation, and create relapse prevention plan for when returns to [place] so doesn't start smoking marijuana again. Pt reviewed her maintenance plan with silvina noyola. Risks/Concerns:: Denies suicidal/homicidal ideation, plan or intention to date. future focused. Progress Toward Goals/Plan:: Progress noted with pt reporting significant treatment progress since starting IOP. Decrease in depression, anxiety, increased healthy coping, able to challenge distorted thoughts, significant decrease in marijuana use, and improved daily functioning. Plan is for pt to continue outpatient counseling with Sera Huizar. Pt will join [facility] aftercare group program once a week for 10 weeks. Pt is waiting to hear back from [place] [phone] for psychiatry services. Time Stopped:: 09:22
== END 2021-04-14 13:02 | disposition home or self-care (01) ==
LOC: BHIOP 09:00
PROVIDERS: PCP Family Medicine; Referring Provider Psychiatry & Neurology Psychiatry; Visit Provider Psychiatry & Neurology Psychiatry
DX: F31.9 Bipolar disorder, unspecified (principal); F41.1 Generalized anxiety disorder; F12.90 Cannabis use, unspecified, uncomplicated
CPT/HCPCS: S9480; 90832; 90853

== ENCOUNTER 2021-04-20 14:04 | Outpatient (RCR) | payer OTHER, SELFPAY ==
--- NOTE | 2021-04-20 14:00 | BH.SGPN.GN ---
Behaviors/Verbalizations/Mental Status: []Client alert and oriented, neatly dressed and groomed. Eye contact good. Motor activity appropriate. Speech within normal limits. Affect constricted, mood euthymic anxious. Thoughts linear, logical, no signs of hallucinations or delusions Client Response/Progress/Benefit: []Client responded well to session, reports feeling ?anxious? 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 Client stated she has been using a lot of grounding to cope with boredom and anxiety. Contributing during discussion of vulnerability and benefits of practicing vulnerability. Shared personal experience of how her relationships have improved by being vulnerable and seeing the benefit of vulnerability in IOP. Discussed ways we avoid feeling vulnerable and how this negatively affects mental health and relationships. Client shared she often avoids being vulnerable by trying to appear perfect and overcompensating in school and work. Appeared to benefit from reflecting on the positive impact vulnerability can have on mental health. Will continue IOP aftercare to promote gains and reinforce healthy coping skills. Narrative Note: []
--- NOTE | 2021-04-20 14:20 | BH.MTP ---
Master Treatment Plan - Patient Information Program Physician:: Dr. Hermelinda Hurtado Primary Therapist:: Glenda PETER - Psychiatric Diagnoses Psychiatric Diagnoses:: 1. Bipolar, NOS (F 31.9). 2. Generalized anxiety disorder. 3. Strong cluster B traits. 4. marijuana use disorder Diagnosis Code(s):: F 31.9 - Estimated LOS Estimated LOS (in weeks):: 12 Problem/Goal #1 - Problem/Goal #1 Stated Goal:: client will maintain or see a reduction in symptoms AEB client score on the DSM 5 cross-cutting measure and improve client's daily functioning. - Objectives Objective #1 Stated Objective: Client will continue to consistently apply healthy coping skills to maintain progress made in IOP tx. Interventions: Through group therapy, client will review warning signs and triggers as well as healthy coping skills learned in IOP tx to successfully maintain gains while transitioning into outpatient therapy. Discharge Criteria: Client will have accomplished this goal when client's score on the DSM-5 cross-cutting measure has either maintained or reduced over a 12 week period. Target Date: 07/13/21 Review Date: 05/18/21 Status: open Objective #2 Stated Objective: Client will learn and utilize 2-3 maintenance strategies to prevent decompensation. Interventions: Through group therapy, client will be provided with education on healthy maintenance behaviors, relapse prevention techniques, and healthy coping strategies. Discharge Criteria: Client will have accomplished this goal when can report using at least 2 maintenance skills to prevent decompensation. Target Date: 07/13/21 Review Date: 05/18/21 Status: open
--- NOTE | 2021-04-27 14:00 | BH.SGPN.GN ---
Behaviors/Verbalizations/Mental Status: []Client alert and oriented, neatly dressed and groomed. Eye contact good. Motor activity appropriate. Speech within normal limits. Affect congruent, mood anxious. Thoughts linear, logical, no signs of hallucinations or delusions. Client Response/Progress/Benefit: []Pt receptive of session, engaged throughout. Pt stated she had a bad week. 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 Pt stated she had a interview this week that she felt she bombed. With therapist help recognizes that if she bombed the interview they wouldn't have hired her for [address] to [address] reports. Pt reported she had a meltdown yesterday but did use skills to help her recover. Receptive of discussion on personal accountability and its importance in maintaining mental health stability. Pt worked cooperatively with group to identify benefits of maintaining personal accountability. Engaged in brainstorming strategies for improving ability to hold themselves accountable. Pt seemed to benefit from support from peers and increasing understanding of personal accountability benefits and strategies. Will continue IOP aftercare group to maintain gains and prevent decompensation.
--- NOTE | 2021-05-11 14:05 | BH.SGPN.GN ---
Behaviors/Verbalizations/Mental Status: [] Client alert and oriented, casual dress, hygiene tended to. Eye contact good. Motor activity appropriate. Speech within normal limits. Affect congruent, mood euthymic. Thoughts linear, logical, no signs of hallucinations or delusions. Client Response/Progress/Benefit: []Client responded well to session, attentive and engaged throughout. Reported feeling ?tired? today and described that this is due to recently beginning a new job and trying to readjust to the work schedule. Went on to identify a win as being more willing to ask questions of her supervisor [employer] rather than try to do things all on her own. Additionally, shared that she has been struggling with missing her friends back in [place]. Did well to identify several thought challenge skills she has been using, as well as trying to focus on remaining in the present moment to prevent ruminating. Participated in discussion on making healthy choices and the barriers keeping clients from making healthy choices. Client identified her personal barriers as: lack of motivation, anxiety, and fear of disappointing others. Client attentive and contributing to discussion of strategies to improve healthy decision making. Shared wanting to be more capable of making decisions without second-guessing herself. Appeared to benefit from reflecting on application of coping skills, identifying barriers, and discussing strategies to improve healthy decision-making skills. Narrative Note: []
== END 2021-05-12 23:59 ==
LOC: BHOG 14:04
PROVIDERS: PCP Family Medicine; Referring Provider Psychiatry & Neurology Psychiatry; Visit Provider Psychiatry & Neurology Psychiatry
DX: F31.9 Bipolar disorder, unspecified (principal); F41.8 Other specified anxiety disorders; F12.90 Cannabis use, unspecified, uncomplicated
CPT/HCPCS: 90853

== ENCOUNTER → 2021-04-21 12:23 | Outpatient (CLI) | payer OTHER, SELFPAY ==
[2021-04-21 13:01] LABS: Mucous, Urine 0 SEEN /hpf (<or=2+); Red Blood Cells-Urine 0 SEEN /hpf (0-5)
[2021-04-21 13:05] LABS: Color, Urine Yellow (Yellow); Glucose, Dipstick Normal (Normal); Ketone-Dipstick Negative (Negative); Leukocyte Esterase-Dipstick Negative /ul (Negative); Nitrite-Dipstick Positive (Negative); Occult Blood-Urine Negative /ul (Negative); Protein-Dipstick Negative (Negative); Specific Gravity, Urine 1.015 (1.002-1.030); Urine Bilirubin Dipstick Negative (Negative); Urine Clarity Clear (Clear); Urine Urobilinogen Normal (Normal)
[2021-04-21 13:16] LABS: Squamous Epithelial Cells - UA 0-5 SEEN /hpf (5-10); White Blood Cells 0-5 SEEN /hpf (0-5)
[2021-04-21 13:17] LABS: Bacteria 1+ /hpf (None Seen)
[2021-04-21 16:03] LABS: Chlamydia Trachomatis by PCR Negative (Negative); Neisserai gonorrhoeae by PCR Negative (Negative); Probe Check PASS; Sample Adequacy Control PASS; Specimen Processing Control PASS
== END ==
PROVIDERS: PCP Family Medicine; Referring Provider Physician Assistant Surgical; Visit Provider Physician Assistant Surgical
DX: Z20.2 Contact with and (suspected) exposure to infections with a predominantly sexual mode of transmission (principal)
CPT/HCPCS: 81001; 87086; 87491; 87591

== ENCOUNTER → 2021-05-09 13:36 | Outpatient (CLI) | payer OTHER, SELFPAY ==
[2021-05-16 18:32] LABS: HPV Reflexed? NOT INDICATED
== END ==
PROVIDERS: PCP Family Medicine; Visit Provider Obstetrics & Gynecology
DX: Z12.4 Encounter for screening for malignant neoplasm of cervix (principal)
CPT/HCPCS: 88175; G0145

== ENCOUNTER 2021-05-17 09:00 | Outpatient (RCR) | payer OTHER, SELFPAY ==
--- NOTE | 2021-05-18 13:52 | BH.MTP_ITS ---
Treatment Plan Review Date of Admission:: 04/20/21 Date of Treatment Plan Review:: 05/18/21 Admitting Diagnoses:: 1. Bipolar, NOS (F 31.9). 2. Generalized anxiety disorder. 3. Strong cluster B traits. 4. marijuana use disorder Current Diagnoses:: 1. Bipolar, NOS (F 31.9). 2. Generalized anxiety disorder. 3. Strong cluster B traits. 4. marijuana use disorder Patient's Response to Treatment:: Pt has been responding well to tx AEB con sistent attendance, application of coping skills, and decreased DSM-5 scores. Pt is an active participant and engages in group discussions. Status of Current Problems and Symptoms: Pt?s problems are ongoing, but resolving. Per pt?s DSM-5 self-assessment, pt continues to experience mild depressive and anxiety symptoms. 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 Pt has been utilizing healthy coping skills consistently and reports no use of marijuana within the past two weeks. Problem #1 Problem Name:: Pt will maintain or see a reduction in sx AEB client score on the DSM-5 Status of Goals:: Objective 1- complete with ongoing work encouraged. Pt?s DSM-5 scores decreased by an additional 30% since IOP discharge. Pt?s scores for depression and anxiety remain the same since IOP discharge which demonstrates ability to maintain progress. Pt?s scores for not knowing who she is or what she wants out of life decreased by an additional 40% since IOP discharge. Objective 2- complete with ongoing work encouraged. Pt reports consistent use of thought challenging, mindfulness, and setting health boundaries with herself to refrain from using unhealthy coping skills. Team Recommendations:: Treatment team recommends pt continue IOP aftercare to promote gains and further increase use of healthy coping skills. Also encourages pt to continue seeing her outpatient providers.
--- NOTE | 2021-05-18 14:00 | BH.SGPN.GN ---
Behaviors/Verbalizations/Mental Status: []Client alert and oriented, neatly dressed and groomed. Eye contact good. Motor activity appropriate. Speech within normal limits. Affect constricted, mood anxious. Thoughts linear, logical, no signs of hallucinations or delusions. Client Response/Progress/Benefit: []Client responded well to session, checked in using GAPS. Client?s emotion today is ?nervous? 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 Client reports she has been using thought challenging a lot to catch and reframe these distorted thought patterns. Client?s other positive is that client got contacted about another job opportunity. Receptive of discussion on self-talk and its influence in maintaining long-term mental health stability. Contributed to strategies for improving effective creation and application of believable personal affirmations. Client?s affirmational statements were ?I can do hard things? and ?I have worth and value as an individual.? Client to continue aftercare group to promote gains and further increase application of healthy coping skills. Narrative Note: []
--- NOTE | 2021-05-25 14:00 | BH.SGPN.GN ---
Behaviors/Verbalizations/Mental Status: []Client alert and oriented, casually dressed and groomed. Eye contact good. Motor activity appropriate. Speech within normal limits, soft. Affect congruent, mood euthymic. Thoughts linear, logical, no signs of hallucinations or delusions. Client Response/Progress/Benefit: [] Pt responded well to session, engaged and remaining attentive and willing to participate in discussion throughout. Reports feeling ?hopeful? today as she has been making progress in her career and is feeling more confident she will be offered a full-time position. Discussed struggling at times with negative thinking and a need for reassurance when questioning her work, but has been doing well to better challenge these thoughts and replace them with more realistic positive thoughts. Shared that healthy distractions have been helping as well. Pt reports connecting with the topic of routine and structure and it?s importance in ongoing mental health maintenance. Pt engaged in brainstorming of various daily routine ideas. Pt completed task of identifying current routine practices as well as important tasks to begin more regularly implementing into a structured daily routine. Shared plans to begin incorporating more regular home-cooked meals in her routine. Pt seemed to benefit from support from peers and learning about benefits of routine. Pt to continue aftercare group to promote ongoing use of healthy coping, continue to promote mood management and self-care, and prevent decompensation. Narrative Note: []
--- NOTE | 2021-06-08 14:00 | BH.SGPN.GN ---
Behaviors/Verbalizations/Mental Status: []Client alert and oriented, casually dressed. Eye contact fair. Motor activity appropriate. Speech within normal limits, limited input provided. Affect constricted, mood depressed and anxious. Thoughts linear, logical, no signs of hallucinations or delusions. Client Response/Progress/Benefit: []Client receptive of session, engaged throughout and providing supportive feedback throughout group. Reports feeling ?depressed and anxious? today as she is struggling with feeling lonely and ?stuck? in [place]. Discussed negative thinking has been impeding her ability to use healthy skills to improve her mood. Did identify some skills she can use such as continuing to engage in self-care, as well as making plans to visit friends in [facility]. Client engaged in the discussion about self-love and worked with the group to identify strategies for increasing self-love. Reports wanting to work on self-love by reminding herself to ?practice self-forgiveness?. Seemed to benefit from reviewing treatment progress and strategies for managing current stressors, as well as learning about how to increase self-love. Client will continue aftercare as well as individual outpatient counseling to maintain gains, prevent decompensation, and continue to promote healthy skill application. Narrative Note: []
== END 2021-06-12 23:59 ==
LOC: BHOG 09:00
PROVIDERS: PCP Family Medicine; Referring Provider Psychiatry & Neurology Psychiatry; Visit Provider Psychiatry & Neurology Psychiatry
DX: F31.9 Bipolar disorder, unspecified (principal); F41.8 Other specified anxiety disorders; F12.90 Cannabis use, unspecified, uncomplicated
CPT/HCPCS: 90853

== ENCOUNTER 2021-06-13 07:41 | Outpatient (RCR) | payer OTHER, SELFPAY ==
--- NOTE | 2021-06-22 14:00 | BH.SGPN.GN ---
Behaviors/Verbalizations/Mental Status: []Client alert and oriented, casually dressed and groomed. Eye contact good. Motor activity appropriate. Speech within normal limits. Affect congruent, mood euthymic. Thoughts linear, logical, no signs of hallucinations or delusions. Client Response/Progress/Benefit: []Client responded well to session, sharing and listening attentively to others throughout. Reported her emotion as ?hopeful?. Client went to [place] and met with her complaint evaluation supervisor. Stated that it went very well, and feels that she will most likely have a job there. Client stated that she is currently looking for an apartment in [place], and is working hard to stay motivated. Client participated in group discussion regarding skills and routines that make up mental health maintenance, and completed their own maintenance plan. Client identified her triggers as seasons changing, being in [place], and being around her parents. Client reported that her warning signs include increased irritability, self isolation, and mood swings. Client?s prevention plan included self care activities and coping strategies, as well as identified how they will know when to return to therapy. Appeared to benefit from identifying personal triggers and warning signs as well as skills to aid client in maintaining mental health. Client to continue aftercare group to promote gains, and prevent regression. Narrative Note: []
--- NOTE | 2021-07-06 14:00 | BH.SGPN.GN ---
Behaviors/Verbalizations/Mental Status: []Client alert and oriented, casually dressed and groomed. Eye contact good. Motor activity appropriate. Speech within normal limits. Affect congruent, mood euthymic. Thoughts linear, logical, no signs of hallucinations or delusions. Client Response/Progress/Benefit: []Client responded well to group session AEB sharing and listening attentively to others. Client reported her emotion as ?hopeful?. 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 Client reported that she has been managing her emotions well, stating that when she struggles with feeling rejected she is able reframe her thoughts. Client was attentive throughout group discussion of gratitude and the importance of practicing both internal and external gratitude into your routine. Client completed a one-week gratitude challenge schedule, setting a goal to focus on internal gratitude by appreciating her body, her determination, and past experiences that she has learned from. Appeared to benefit from increased knowledge of the internal and external gratitude in relation to mental health and increased self-awareness. Client to continue aftercare group to promote gains and continue increasing application of healthy coping skills to maintain stability. Narrative Note: []
== END 2021-07-10 23:59 ==
LOC: BHOG 07:41
PROVIDERS: PCP Family Medicine; Referring Provider Psychiatry & Neurology Psychiatry; Visit Provider Psychiatry & Neurology Psychiatry
DX: F31.9 Bipolar disorder, unspecified (principal); F41.8 Other specified anxiety disorders; F12.90 Cannabis use, unspecified, uncomplicated
CPT/HCPCS: 90853

== ENCOUNTER 2021-07-11 07:52 | Outpatient (RCR) | payer OTHER, SELFPAY ==
--- NOTE | 2021-07-13 14:00 | BH.SGPN.GN ---
Behaviors/Verbalizations/Mental Status: []Client alert and oriented, casually dressed and groomed. Eye contact good. Motor activity appropriate. Speech within normal limits. Affect congruent, mood euthymic. Thoughts linear, logical, no signs of hallucinations or delusions. Client Response/Progress/Benefit: []Client responded well to session AEB sharing and listening attentively to others. Client reported emotion as ?impatient? as she is excited to move to [place] in August. Client provided insight to others as today is her last day. Client was engaged throughout group discussion defining self compassion, reviewing the three alcantara elements, and identifying what self compassion is not. Client completed exercise working through a past situation where they could have benefited from self compassion. Client identified making a mistake on an order at work. Client applied self compassion to this situation, stating ?I am new, it was a complicated order?. Appeared to benefit from increased knowledge of self compassion and increased self awareness. Client to discharge from [facility] aftercare as client has met treatment goals and will continue with outpatient counseling. Narrative Note: []
== END 2021-07-14 07:24 | disposition home or self-care (01) ==
LOC: BHOG 07:52
PROVIDERS: PCP Family Medicine; Referring Provider Psychiatry & Neurology Psychiatry; Visit Provider Psychiatry & Neurology Psychiatry
DX: F41.8 Other specified anxiety disorders; F31.9 Bipolar disorder, unspecified; F12.90 Cannabis use, unspecified, uncomplicated
CPT/HCPCS: 90853